=== PATIENT | female | born 1960 | race Caucasian/White ===

== ENCOUNTER → 2017-06-07 14:48 | Outpatient (CLI) | payer OTHER, SELFPAY ==
[2017-06-07 17:57] LABS: Absolute Lymphocyte Count 3.07 X10^3/ul (0.83-4.51); Absolute Neutrophil Count 4.7 X10^3/uL (2.0-7.7); Basophil# 0.02 X10^3/uL; Basophil% 0.2 % (0-1); Eosinophil# 0.16 X10^3/uL; Eosinophils% 1.8 % (0-5); Hematocrit 42.1 % (37-47); Hemoglobin 13.8 g/dl (12.0-15.0); Lymphocyte # 3.07 X10^3/ul (4.0); Lymphocyte % 35.2 % (19-41); Mean Corp Hgb Conc 32.8 g/gl (32-36); Mean Corpuscular Hgb 29.9 pg (27.0-32.0); Mean Corpuscular Volume 91.1 fL (81-99); Monocyte# 0.73 X10^3/uL; Monocyte% 8.4 % (0-10); Neutrophil # 4.74 X10^3/uL (2.7-7.7); Neutrophil % 54.3 % (47-70); Platelet Count 344 K/mm3 (150-450); RBC Distribution Width SD 42.8 fl (35.1-43.9); Red Blood Count 4.62 M/mm3 (4.2-5.4); White Blood Count 8.7 K/mm3 (4.4-11.0)
[2017-06-07 18:17] LABS: POSITIVE COUNT NO; POSITIVE DIFFERENTIAL NO; POSITIVE MORPHOLOGY NO
[2017-06-07 18:53] LABS: ALB/GLOB Ratio 0.8 RATIO (0.9-2.4); AST(SGOT) 19 U/L (15-37); Alanine Aminotransfer ALT/SGPT 25 U/L (13-56); Albumin, Serum 3.7 g/dL (3.2-5.0); Alkaline Phosphatase 89 U/L (45-117); Anion Gap 10 (5-15); BUN 14 mg/dL (7-18); BUN/Creat Ratio 15.5 RATIO (10-20); Calcium,Total 8.8 mg/dL (8.5-10.1); Chloride 103 mmol/L (98-107); EST Glomerular Filtration Rate 68 mL/min (>60); Est Glom Filt Rate - Afr Amer 83 mL/min (>60); Globulin 4.7 g/dL (2.2-4.2); Glucose 96 mg/dL (74-106); Potassium 3.8 mmol/L (3.5-5.1); Protein, Total 8.4 g/dL (6.4-8.2); Sodium Level 140 mmol/L (136-145)
== END ==
PROVIDERS: Family Provider Family Medicine; PCP Family Medicine; Visit Provider Internal Medicine Rheumatology
DX: L40.59 Other psoriatic arthropathy (principal); Z79.899 Other long term (current) drug therapy; L40.9 Psoriasis, unspecified
CPT/HCPCS: 36415; 80053; 85025

== ENCOUNTER → 2018-03-05 10:50 | Outpatient (CLI) | payer OTHER, SELFPAY ==
--- OUTSIDE RECORDS SUMMARY | 2018-04-29 19:50 | XMS RPT_ITS ---
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 Cult, Anaerobic No anaerobic bacteria isolated. Performed By: #### M100.1200 #### [facility] [place], [address] CBC W/DIFF, AUTOMATED Collected: 06/07/2017 Status: F Source: [facility] 2:54 PM [facility] TYPE CODE TESTS RESULT OUT OF RANGE REFERENCE UNITS LAB L100.1000 4.4-11.0 K/mm3 Normal WBC 8.7 LAB L100.1200 4.2-5.4 M/mm3 Normal RBC 4.62 LAB L100.1300 12.0-15.0 g/dl Normal HGB 13.8 LAB L100.1400 37-47 % Normal HCT 42.1 LAB L100.1500 81-99 fL Normal MCV 91.1 LAB L100.1600 27.0-32.0 pg Normal MCH 29.9 LAB L100.1700 32-36 g/gl Normal MCHC 32.8 LAB L100.1810 11.6-14.6 % Normal RDW CV 13.0 LAB L100.1820 35.1-43.9 fl Normal RDW SD 42.8 LAB L100.1900 150-450 K/mm3 Normal PLT 344 LAB L100.2000 6.2-12.0 fl Normal MPV 10.0 LAB L100.2100 47-70 % Normal NEUT% 54.3 LAB L100.2200 19-41 % Normal LY% 35.2 LAB L100.2300 0-10 % Normal MONO% 8.4 LAB L100.2400 0-5 % Normal EO% 1.8 LAB L100.2500 0-1 % Normal BASO% 0.2 LAB L100.2550 0.0-0.9 % Normal IM GRAN % 0.100 Result Comment: IG% - Immature Granulocytes (promyelocytes, myelocytes and metamyelocytes) > 1% indicates that a LEFT SHIFT is Present. LAB L100.2620 2.0-7.7 X10 3/uL Normal Absolute Neut 4.7 LAB L100.2720 0.83-4.51 X10 3/ul Normal Absolute Lymph 3.07 Performed By: #### L100.0100 #### [facility] [address] [place], [address] COMPREHENSIVE METABOLIC Collected: 06/07/2017 Status: F Source: [facility] 2:54 PM [facility] TYPE CODE TESTS RESULT OUT OF RANGE REFERENCE UNITS LAB L501.0100 74-106 mg/dL Normal GLU 96 Result Comment: Please note revised GLUCOSE reference range effective 2017. LAB L501.1000 7-18 mg/dL Normal BUN 14 LAB L501.1100 0.55-1.02 mg/dL Normal CREAT,SERUM 0.90 Result Comment: The validity of the calculated GFR AND GFRAA in patients over 70 years has not been determined. Clinical correlation is essential. LAB L501.1110 >60 mL/min Normal EST GFR 68 Result Comment: Non- GFR Calc LAB L501.1115 >60 mL/min Normal EST GFR - AA 83 Result Comment: GFR Calc LAB L501.1300 10-20 RATIO Normal BUN/CRE 15.5 LAB L501.1500 6.4-8.2 g/dL High T PROT 8.4 LAB L501.1800 3.2-5.0 g/dL Normal ALB 3.7 LAB L501.1950 2.2-4.2 g/dL High GLOB 4.7 LAB L501.2000 0.9-2.4 RATIO Low A/G 0.8 LAB L501.2200 8.5-10.1 mg/dL CA Normal 8.8 LAB L501.4100 15-37 U/L Normal AST 19 LAB L501.4305 45-117 U/L Normal ALK P 89 LAB L501.4405 13-56 U/L Normal ALT 25 Result Comment: Please note revised ALT reference range effective 2017. LAB L501.4600 0.20-1.00 mg/dL Normal T BILI 0.50 LAB L501.5300 136-145 mmol/L Normal NA 140 LAB L501.5600 3.5-5.1 mmol/L Normal K 3.8 LAB L501.5900 98-107 mmol/L Normal CL 103 LAB L501.6100 21.0-32.0 mmol/L Normal CO2 27.0 LAB L501.6200 5-15 Normal GAP 10 Performed By: #### L500.4050 #### [facility] [address] [place], [address] ALLERGIES ALLERGIES No Allergies Records FoundENCOUNTERS ENCOUNTERS ADMIT/DISCHARGE ACCOUNT ADMITTING ENCOUNTER LOCATION SOURCE NUMBER CLASS 03/05/2018 [id number] [facility] 9 [facility] ing:LABSPEC Repository 06/07/2017 [id number] [facility] 0 [facility] ing:MTLAB Repository PAYERS PAYERS ENCOUNTER GUARANTOR PAYER SUBSCRIBER SOURCE 03/05/2018 LEONEL [id number] Insurance:MEDICAL WAGNERDOB: [facility] [id number] Number: Repository [id number]: [phone] [id number] [phone] () Date:[id number] [address]LB: 03/05/2018 Secondary NOT GIVENUNK Dashawn Insurance:SELF PAY [facility] Number: Effective Repository Date:2018-03-05 06/07/2017 LEONEL Garza Primary [place]ONEL [place] [id number] Insurance:MEDICAL OSKALOOSADOB: [facility] [id number] Number: Repository [id number]: [phone] [id number] [phone] () Date:[id number] [address] [place] [phone]: 06/07/2017 Secondary NOT GIVENUNK Dashawn Insurance:SELF PAY [facility] Number: Effective Repository Date:2017-06-07
== END ==
PROVIDERS: Family Provider Family Medicine; PCP Family Medicine; Referring Provider Otolaryngology Otolaryngology/Facial Plastic Surgery; Visit Provider Otolaryngology Otolaryngology/Facial Plastic Surgery
DX: H01.009 Unspecified blepharitis unspecified eye, unspecified eyelid (principal)
CPT/HCPCS: 87070; 87075; 87205

== ENCOUNTER → 2018-04-15 15:29 | Outpatient (CLI) | payer OTHER, SELFPAY ==
[2018-04-15 17:58] LABS: Absolute Lymphocyte Count 1.93 X10^3/ul (0.83-4.51); Absolute Neutrophil Count 3.7 X10^3/uL (2.0-7.7); Basophil# 0.03 X10^3/uL; Basophil% 0.5 % (0-1); Eosinophil# 0.16 X10^3/uL; Eosinophils% 2.5 % (0-5); Hematocrit 43.9 % (37-47); Hemoglobin 14.3 g/dl (12.0-15.0); Lymphocyte # 1.93 X10^3/ul (4.0); Lymphocyte % 29.8 % (19-41); Mean Corp Hgb Conc 32.6 g/gl (32-36); Mean Corpuscular Hgb 29.8 pg (27.0-32.0); Mean Corpuscular Volume 91.5 fL (81-99); Mean Platelet Vol. 10.6 fl (6.2-12.0); Monocyte% 9.3 % (0-10); Neutrophil # 3.73 X10^3/uL (2.7-7.7); Neutrophil % 57.6 % (47-70); Platelet Count 389 K/mm3 (150-450); RBC Distribution Width CV 13.9 % (11.6-14.6); RBC Distribution Width SD 46.1 fl (35.1-43.9); White Blood Count 6.5 K/mm3 (4.4-11.0)
[2018-04-15 18:03] LABS: ALB/GLOB Ratio 0.8 RATIO (0.9-2.4); AST(SGOT) 21 U/L (15-37); Alanine Aminotransfer ALT/SGPT 27 U/L (13-56); Albumin, Serum 3.7 g/dL (3.2-5.0); Alkaline Phosphatase 84 U/L (45-117); Anion Gap 10 (5-15); BUN 12 mg/dL (7-18); BUN/Creat Ratio 11.5 RATIO (10-20); Calcium,Total 8.8 mg/dL (8.5-10.1); Chloride 104 mmol/L (98-107); Creatinine, Serum 1.04 mg/dL (0.55-1.02); EST Glomerular Filtration Rate 58 mL/min (>60); Est Glom Filt Rate - Afr Amer 70 mL/min (>60); Globulin 4.5 g/dL (2.2-4.2); Glucose 149 mg/dL (74-106); Potassium 3.6 mmol/L (3.5-5.1); Protein, Total 8.2 g/dL (6.4-8.2); Sodium Level 140 mmol/L (136-145)
[2018-04-15 18:22] LABS: POSITIVE COUNT NO; POSITIVE DIFFERENTIAL NO; POSITIVE MORPHOLOGY NO
[2018-04-15 19:35] LABS: Erythrocyte Sedimentation Rate 68 mm/hr (0-30)
== END ==
PROVIDERS: Family Provider Family Medicine; PCP Family Medicine; Referring Provider Internal Medicine Rheumatology; Visit Provider Internal Medicine Rheumatology
DX: L40.59 Other psoriatic arthropathy (principal); Z79.899 Other long term (current) drug therapy; L40.9 Psoriasis, unspecified; M17.0 Bilateral primary osteoarthritis of knee; M25.562 Pain in left knee
CPT/HCPCS: 36415; 80053; 85025; 85652; 86140

== ENCOUNTER → 2018-11-22 | Outpatient (CLI) | payer OTHER, SELFPAY ==
[2018-11-22 15:22] LABS: Absolute Lymphocyte Count 1.75 X10^3/uL (0.83-4.51); Absolute Neutrophil Count 4.9 X10^3/uL (2.0-7.7); Basophil# 0.05 X10^3/uL; Basophil% 0.7 % (0-1); Eosinophils% 2.6 % (0-5); Hemoglobin 13.1 g/dL (12.0-15.0); Lymphocyte # 1.75 X10^3/ul (4.0); Mean Corpuscular Hgb 29.8 pg (27.0-32.0); Mean Corpuscular Volume 93.2 fL (81-99); Mean Platelet Vol. 10.8 fl (6.2-12.0); Monocyte# 0.73 X10^3/uL; Monocyte% 9.6 % (0-10); NRBC Flagged by Analyzer 0 % (0-5); Neutrophil # 4.86 X10^3/uL (2.7-7.7); Neutrophil % 63.8 % (47-70); Platelet Count 397 K/mm3 (150-450); RBC Distribution Width CV 12.8 % (11.6-14.6); RBC Distribution Width SD 43.8 fl (35.1-43.9); White Blood Count 7.6 K/mm3 (4.4-11.0)
[2018-11-22 15:32] LABS: Anion Gap 3 (5-15); BUN 15 mg/dL (7-18); BUN/Creat Ratio 10.3 RATIO (10-20); Calcium,Total 8.5 mg/dL (8.5-10.1); Chloride 109 mmol/L (98-107); Creatinine, Serum 1.46 mg/dL (0.55-1.02); EST Glomerular Filtration Rate 39 mL/min (>60); Est Glom Filt Rate - Afr Amer 47 mL/min (>60); Glucose 105 mg/dL (74-106); Potassium 4.3 mmol/L (3.5-5.1); Sodium Level 141 mmol/L (136-145)
[2018-11-22 16:04] LABS: Vitamin D,25 Hydroxy 10.6 ng/mL (29.95-100.01)
[2018-11-25 03:06] LABS: QNTFERON TB Mitogen Value > 10.00 IU/mL (.); QNTFERON TB Nil Value 0.04 IU/mL (.); QNTFERON TB1+ Ag Value 0.04 IU/mL (.); QNTFERON TB2+ Ag Value 0.04 IU/mL (.)
[2018-11-25 13:38] LABS: QNTIFERON TB Positive Criteria Negative (Negative)
== END | disposition home or self-care (01) ==
LOC: MTLAB 14:02
PROVIDERS: Family Provider Family Medicine; PCP Family Medicine; Referring Provider Dermatology; Visit Provider Dermatology
DX: L40.0 Psoriasis vulgaris (principal); Z79.899 Other long term (current) drug therapy; L40.59 Other psoriatic arthropathy
CPT/HCPCS: 36415; 80048; 82306; 85025; 86480

== ENCOUNTER → 2020-07-08 12:38 | Outpatient (CLI) | payer OTHER, SELFPAY ==
[2020-07-10 20:07] LABS: HCV Quant. RNA PCR HCV Not Detected IU/mL (.)
== END ==
PROVIDERS: PCP Family Medicine; Referring Provider Dermatology; Visit Provider Dermatology
DX: L40.0 Psoriasis vulgaris (principal); L40.50 Arthropathic psoriasis, unspecified; Z79.899 Other long term (current) drug therapy
CPT/HCPCS: 36415; 87522

== ENCOUNTER → 2020-08-20 11:50 | Outpatient (CLI) | payer OTHER, SELFPAY ==
[2020-08-23 06:08] LABS: QNTFERON TB Mitogen Value > 10.00 IU/mL (.); QNTFERON TB Nil Value 0 IU/mL (.); QNTFERON TB1+ Ag Value 0 IU/mL (.); QNTFERON TB2+ Ag Value 0 IU/mL (.)
[2020-08-23 08:30] LABS: QNTIFERON TB Positive Criteria Negative (Negative)
== END ==
PROVIDERS: PCP Family Medicine; Referring Provider Dermatology; Visit Provider Dermatology
DX: L40.0 Psoriasis vulgaris (principal); L40.50 Arthropathic psoriasis, unspecified; Z79.899 Other long term (current) drug therapy
CPT/HCPCS: 86480

== ENCOUNTER → 2021-08-07 | Outpatient (CLI) | payer OTHER, SELFPAY | END | disposition home or self-care (01) | LOC: LABSPEC 15:15 | PROVIDERS: PCP Family Medicine; Referring Provider Otolaryngology Otolaryngology/Facial Plastic Surgery; Visit Provider Otolaryngology Otolaryngology/Facial Plastic Surgery | DX: J32.9 Chronic sinusitis, unspecified (principal) | CPT/HCPCS: 87070; 87077; 87186; 87205 ==

== ENCOUNTER → 2022-08-06 | Outpatient (CLI) | payer OTHER, SELFPAY ==
[2022-08-06 17:43] LABS: Absolute Lymphocyte Count 1.22 X10^3/uL (0.83-4.51); Absolute Neutrophil Count 5.6 X10^3/uL (2.0-7.7); Basophil# 0.07 X10^3/uL; Basophil% 0.9 % (0-1); Eosinophil# 0.03 X10^3/uL; Eosinophils% 0.4 % (0-5); Hematocrit 44.2 % (37-47); Hemoglobin 14.2 g/dL (12.0-15.0); Lymphocyte # 1.22 X10^3/ul (0.83-4.51); Lymphocyte % 16.4 % (19-41); Mean Corp Hgb Conc 32.1 g/dL (32-36); Mean Corpuscular Hgb 29.3 pg (27.0-32.0); Mean Corpuscular Volume 91.3 fL (81-99); Mean Platelet Vol. 10.4 fl (6.2-12.0); Monocyte# 0.58 X10^3/uL; Monocyte% 7.8 % (0-10); NRBC Flagged by Analyzer 0 % (0-5); Neutrophil # 5.55 X10^3/uL (2.7-7.7); Neutrophil % 74.4 % (47-70); Platelet Count 389 K/mm3 (150-450); RBC Distribution Width CV 13.1 % (11.6-14.6); RBC Distribution Width SD 43.5 fl (35.1-43.9); Red Blood Count 4.84 M/mm3 (4.2-5.4); White Blood Count 7.5 K/mm3 (4.4-11.0)
[2022-08-06 18:27] LABS: Hemoglobin A1c 5.2 % (3.8-5.6)
[2022-08-06 18:50] LABS: ALB/GLOB Ratio 0.8 RATIO (0.9-2.4); AST(SGOT) 26 U/L (15-37); Alanine Aminotransfer ALT/SGPT 25 U/L (13-56); Albumin, Serum 3.7 g/dL (3.2-5.0); Alkaline Phosphatase 90 U/L (45-117); Anion Gap 10 (5-15); BUN 15 mg/dL (7-18); BUN/Creat Ratio 15.6 RATIO (10-20); Calcium,Total 9.5 mg/dL (8.5-10.1); Chloride 105 mmol/L (98-107); Cholesterol 215 mg/dL (200); Creatinine, Serum 0.96 mg/dL (0.55-1.02); EST Glomerular Filtration Rate 63 mL/min (>60); Est Glom Filt Rate - Afr Amer 76 mL/min (>60); Globulin 4.8 g/dL (2.2-4.2); Glucose 112 mg/dL (74-106); High Density Lipoprotein 44 mg/dL; Potassium 4.1 mmol/L (3.5-5.1); Protein, Total 8.5 g/dL (6.4-8.2); Sodium Level 139 mmol/L (136-145); Thyroid Stim Hormone (TSH) 3.29 uIU/mL (0.358-3.74); Triglycerides 115 mg/dL; Very Low Density Lipoprotein 23 mg/dL (5-40)
== END | disposition home or self-care (01) ==
LOC: MFPLAB 14:54
PROVIDERS: PCP Family Medicine; Visit Provider Family Medicine
DX: Z13.0 Encounter for screening for diseases of the blood and blood-forming organs and certain disorders involving the immune mechanism (principal); Z13.228 Encounter for screening for other metabolic disorders; Z13.1 Encounter for screening for diabetes mellitus; Z13.220 Encounter for screening for lipoid disorders
CPT/HCPCS: 36415; 80053; 80061; 83036; 84443; 85025

== ENCOUNTER → 2022-10-22 | Outpatient (CLI) | payer OTHER, SELFPAY ==
[2022-10-28 16:45] LABS: HPV HC, High Risk Negative; HPV Reflexed? YES, CHARGE PATIENT
== END | disposition home or self-care (01) ==
PROVIDERS: PCP Family Medicine; Visit Provider Family Medicine
DX: Z12.4 Encounter for screening for malignant neoplasm of cervix (principal)
CPT/HCPCS: 87624; 88175; G0145

== ENCOUNTER → 2023-01-06 | Outpatient (CLI) | payer OTHER, SELFPAY ==
[2023-01-06 15:12] LABS: Absolute Lymphocyte Count 2.19 X10^3/uL (0.83-4.51); Absolute Neutrophil Count 4.8 X10^3/uL (2.0-7.7); Basophil% 1.2 % (0-1); Eosinophil# 0.21 X10^3/uL; Eosinophils% 2.5 % (0-5); Hematocrit 41.5 % (37-47); Hemoglobin 13.2 g/dL (12.0-15.0); Lymphocyte # 2.19 X10^3/ul (0.83-4.51); Lymphocyte % 26.5 % (19-41); Mean Corp Hgb Conc 31.8 g/dL (32-36); Mean Corpuscular Hgb 28.4 pg (27.0-32.0); Mean Corpuscular Volume 89.4 fL (81-99); Mean Platelet Vol. 10.5 fl (6.2-12.0); Monocyte# 0.96 X10^3/uL; Monocyte% 11.6 % (0-10); NRBC Flagged by Analyzer 0 % (0-5); Neutrophil # 4.76 X10^3/uL (2.7-7.7); Neutrophil % 57.7 % (47-70); POSITIVE COUNT YES; Platelet Count 506 K/mm3 (150-450); RBC Distribution Width CV 12.7 % (11.6-14.6); RBC Distribution Width SD 41.3 fl (35.1-43.9); Red Blood Count 4.64 M/mm3 (4.2-5.4); White Blood Count 8.3 K/mm3 (4.4-11.0)
[2023-01-06 15:36] LABS: AST(SGOT) 26 U/L (15-37); Alanine Aminotransfer ALT/SGPT 23 U/L (13-56); Albumin, Serum 3.1 g/dL (3.2-5.0); Alkaline Phosphatase 81 U/L (45-117); Bilirubin, Direct 0.12 mg/dL (0.00-0.30); Creatinine, Serum 1.06 mg/dL (0.55-1.02); EST Glomerular Filtration Rate 56 mL/min (>60); Est Glom Filt Rate - Afr Amer 68 mL/min (>60); Globulin 5.6 g/dL (2.2-4.2); Protein, Total 8.7 g/dL (6.4-8.2)
[2023-01-06 15:56] LABS: Differential Indicated SCAN CRITERIA MET
[2023-01-06 16:23] LABS: Differential Comment SCANNED
== END | disposition home or self-care (01) ==
PROVIDERS: PCP Family Medicine; Referring Provider Internal Medicine Rheumatology; Visit Provider Internal Medicine Rheumatology
DX: L40.50 Arthropathic psoriasis, unspecified (principal)
CPT/HCPCS: 36415; 80076; 82565; 85025

== ENCOUNTER → 2023-01-29 | Outpatient (CLI) | payer OTHER, SELFPAY ==
[2023-01-29 16:32] LABS: ALB/GLOB Ratio 0.6 RATIO (0.9-2.4); AST(SGOT) 42 U/L (15-37); Alanine Aminotransfer ALT/SGPT 37 U/L (13-56); Alkaline Phosphatase 86 U/L (45-117); Anion Gap 9 (5-15); BUN 11 mg/dL (7-18); BUN/Creat Ratio 9.6 RATIO (10-20); Calcium,Total 8.9 mg/dL (8.5-10.1); Chloride 103 mmol/L (98-107); Creatinine, Serum 1.14 mg/dL (0.55-1.02); EST Glomerular Filtration Rate 51 mL/min (>60); Est Glom Filt Rate - Afr Amer 62 mL/min (>60); Globulin 5.2 g/dL (2.2-4.2); Glucose 210 mg/dL (74-106); Potassium 3.9 mmol/L (3.5-5.1); Protein, Total 8.2 g/dL (6.4-8.2); Sodium Level 136 mmol/L (136-145); Thyroid Stim Hormone (TSH) 2.78 uIU/mL (0.358-3.74)
== END | disposition home or self-care (01) ==
LOC: MTLAB 13:52
PROVIDERS: PCP Family Medicine; Referring Provider Internal Medicine Cardiovascular Disease; Visit Provider Internal Medicine Cardiovascular Disease
DX: R00.2 Palpitations (principal); R00.0 Tachycardia, unspecified; I10 Essential (primary) hypertension
CPT/HCPCS: 36415; 80053; 84443

== ENCOUNTER → 2023-02-16 | Outpatient (CLI) | payer OTHER, SELFPAY ==
--- NOTE | 2023-02-16 09:44 | ECHOCS_ITS ---
Reason For Study: TACHYCARDIA Procedure This was a 2D Doppler, Color Flow transthoracic echocardiogram. The study was technically difficult. Contrast injection was performed. Exam performed in department. Left Ventricle Normal LV size. Mild concentric left ventricular hypertrophy. The left ventricular ejection fraction is 70 %. Stage 1 diastolic dysfunction. Right Ventricle Normal right ventricle. Atria The left and right atria are normal. Mitral Valve The mitral valve is structurally normal. No prolapse or stenosis seen. Tricuspid Valve Normal tricuspid valve. Aortic Valve Trisinus/trileaflet aortic valve. Pulmonic Valve The pulmonic valve is not well visualized. Great Vessels Normal sized aortic root. Pericardium/Pleural Trivial pericardial effusion. Medication 22 gauge I.V. with prn adaptor inserted into left arm. Diluted definity 2ml given slow IV push to enhance endocardial definition. MMode/2D Measurements & Calculations LVIDd: 3.5 cm IVSd: 1.2 cm Ao root diam: 2.8 cm LVIDs: 2.3 cm LVPWd: 0.97 cm FS: 35.2 % LAV(MOD-bp): 22.9 ml LVAd ap4: 27.6 cm2 SV(MOD-sp4): 56.7 ml LAV(MOD-bp) Indexed: 11.3 ml/m2 LVLd ap4: 7.6 cm LAV(MOD-sp2): 28.5 ml EDV(MOD-sp4): 84.1 ml LAV(MOD-sp4): 18.8 ml EDV(sp4-el): 84.9 ml LVAs ap4: 14.6 cm2 LVLs ap4: 6.5 cm ESV(MOD-sp4): 27.4 ml ESV(sp4-el): 27.7 ml EF(MOD-sp4): 67.4 % EF(sp4-el): 67.3 % SV(sp4-el): 57.1 ml LA A4 area: 10.0 cm2 LA dimension(2D): 3.2 cm RA A4 area: 12.7 cm2 TAPSE: 2.0 cm Time Measurements MV dec time: 0.09 sec Doppler Measurements & Calculations MV E max temo: 71.4 cm/sec Lat Peak E' Temo: 6.0 cm/sec Med Peak E' Temo: 5.5 cm/sec MV A max temo: 94.5 cm/sec E/E' lat: 12.0 E/E' med: 13.0 MV E/A: 0.76 MV V2 max: 93.3 cm/sec MV dec slope: 878.4 cm/sec2 Ao V2 max: 94.8 cm/sec MV max P.5 mmHg Ao max P.6 mmHg MV V2 mean: 59.7 cm/sec Ao V2 mean: 68.3 cm/sec MV mean P.6 mmHg Ao mean P.1 mmHg MV V2 VTI: 18.2 cm Ao V2 VTI: 17.5 cm AV (velocity ratio): 1.1 LV V1 max: 89.1 cm/sec PA V2 max: 110.1 cm/sec LV V1 max P.2 mmHg PA V2 mean: 73.2 cm/sec LV V1 mean P.7 mmHg LV V1 mean: 60.9 cm/sec LV V1 VTI: 19.1 cm ECHO/Echo Complete W/ Contrast Interpretation Summary Mild concentric left ventricular hypertrophy. The left ventricular ejection fraction is 70 %. Stage 1 diastolic dysfunction. Trivial pericardial effusion. Ordering Physician: Nuzhat Jade Referring Physician: Nuzhat Jade Performed By: Nenita Wynn RCS
== END | disposition home or self-care (01) ==
PROVIDERS: PCP Family Medicine; Referring Provider Internal Medicine Cardiovascular Disease; Visit Provider Internal Medicine Cardiovascular Disease
DX: R00.2 Palpitations (principal); R00.0 Tachycardia, unspecified; I10 Essential (primary) hypertension
CPT/HCPCS: 93225; 93226; 93306; Q9957; A4216; C8929

== ENCOUNTER → 2023-03-10 | Outpatient (CLI) | payer OTHER, SELFPAY ==
[2023-03-10 17:46] LABS: Absolute Lymphocyte Count 1.41 X10^3/uL (0.83-4.51); Absolute Neutrophil Count 7.5 X10^3/uL (2.0-7.7); Eosinophil# 0.03 X10^3/uL; Eosinophils% 0.3 % (0-5); Hematocrit 43.9 % (37-47); Hemoglobin 13.7 g/dL (12.0-15.0); Lymphocyte # 1.41 X10^3/ul (0.83-4.51); Lymphocyte % 13.9 % (19-41); Mean Corp Hgb Conc 31.2 g/dL (32-36); Mean Corpuscular Hgb 27.3 pg (27.0-32.0); Mean Corpuscular Volume 87.5 fL (81-99); Mean Platelet Vol. 9.9 fl (6.2-12.0); Monocyte# 1.11 X10^3/uL; Monocyte% 10.9 % (0-10); NRBC Flagged by Analyzer 0 % (0-5); Neutrophil # 7.49 X10^3/uL (2.7-7.7); Neutrophil % 73.6 % (47-70); Platelet Count 502 K/mm3 (150-450); RBC Distribution Width CV 14.7 % (11.6-14.6); RBC Distribution Width SD 46.7 fl (35.1-43.9); Red Blood Count 5.02 M/mm3 (4.2-5.4); White Blood Count 10.2 K/mm3 (4.4-11.0)
[2023-03-10 18:14] LABS: AST(SGOT) 39 U/L (15-37); Alanine Aminotransfer ALT/SGPT 30 U/L (13-56); Albumin, Serum 3.5 g/dL (3.2-5.0); Alkaline Phosphatase 86 U/L (45-117); Bilirubin, Direct 0.11 mg/dL (0.00-0.30); Creatinine, Serum 1.01 mg/dL (0.55-1.02); EST Glomerular Filtration Rate 59 mL/min (>60); Est Glom Filt Rate - Afr Amer 71 mL/min (>60); Protein, Total 8.5 g/dL (6.4-8.2)
[2023-03-10 18:16] LABS: Erythrocyte Sedimentation Rate 92 mm/hr (0-30)
== END | disposition home or self-care (01) ==
LOC: MTLAB 15:13
PROVIDERS: PCP Family Medicine; Referring Provider Internal Medicine Rheumatology; Visit Provider Internal Medicine Rheumatology
DX: L40.50 Arthropathic psoriasis, unspecified (principal)
CPT/HCPCS: 36415; 80076; 82565; 85025; 85652; 86140

== ENCOUNTER → 2023-05-03 | Outpatient (CLI) | payer OTHER, SELFPAY ==
--- OUTSIDE RECORDS SUMMARY | 2023-05-03 14:52 | XMS RPT_ITS | CCD ---
Author Name Unknown Address [address] [place] [address] Organization [facility] Care Team Providers Care Solar Energy Technician Name Role Phone NOLBERTO LEAL Attending Unavailable LOLIS LEWIS Referring Unavailable Encounters Encounter Date Encounter Type Care Provider Facility Start: 06-27-2021 [facility] Facility :[facility] Start: 06-23-2021 [facility] Facility :[facility] Start: 04-24-2021 [facility] Facility :[facility] Payers Date Payer Category Payer Unknown [id number] 1960 Unknown [id number] 1960 Unknown [id number] [id number]. [id number] Summary Purpose Family History No Family History Records Found Advance Directives No Advanced Directives Records Found Additional Source Comments INFORMATION SOURCE (unrecogn ized section and content) FOR RECORDS PERTAINING TO PATIENTS WHO ARE OR HAVE BEEN ENROLLED IN A CHEMICAL DEPENDENCY/SUBSTANCEABUSE PROGRAM, SOME INFORMATION MAY BE OMITTED. This clinical summary was aggregated from multiple sources. Caution should be exercised in using it in the provision of clinical care. This summary normalizes information from multiple sources, and as a consequence, information in this document may materially change the coding, format and clinical context of patient data. In addition, data may be omitted in some cases. CLINICAL DECISIONS SHOULD BE BASED ON THE PRIMARY CLINICAL RECORDS. [facility] [employer] provides no warranty or guarantee of the accuracy or completeness of information in this document.
[2023-05-03 17:56] LABS: Erythrocyte Sedimentation Rate 116 mm/hr (0-30)
[2023-05-03 18:06] LABS: AST(SGOT) 37 U/L (15-37); Alanine Aminotransfer ALT/SGPT 28 U/L (13-56); Alkaline Phosphatase 79 U/L (45-117); Bilirubin, Direct 0.14 mg/dL (0.00-0.30); Creatinine, Serum 0.94 mg/dL (0.55-1.02); EST Glomerular Filtration Rate 64 mL/min (>60); Est Glom Filt Rate - Afr Amer 78 mL/min (>60)
[2023-05-05 09:38] LABS: Absolute Lymphocyte Count 2.06 X10^3/uL (0.83-4.51); Absolute Neutrophil Count 4.9 X10^3/uL (2.0-7.7); Basophil# 0.14 X10^3/uL; Basophil% 1.5 % (0-1); Eosinophil# 0.13 X10^3/uL; Eosinophils% 1.4 % (0-5); Hematocrit 41.2 % (37-47); Hemoglobin 12.7 g/dL (12.0-15.0); Lymphocyte # 2.06 X10^3/ul (0.83-4.51); Lymphocyte % 22.6 % (19-41); Mean Corp Hgb Conc 30.8 g/dL (32-36); Mean Corpuscular Hgb 26.8 pg (27.0-32.0); Mean Corpuscular Volume 86.9 fL (81-99); Mean Platelet Vol. 10.1 fl (6.2-12.0); Monocyte# 1.64 X10^3/uL; NRBC Flagged by Analyzer 0 % (0-5); Neutrophil # 4.89 X10^3/uL (2.7-7.7); Neutrophil % 53.8 % (47-70); POSITIVE DIFFERENTIAL YES; POSITIVE MORPHOLOGY YES; Platelet Count 594 K/mm3 (150-450); RBC Distribution Width CV 13.5 % (11.6-14.6); Red Blood Count 4.74 M/mm3 (4.2-5.4); White Blood Count 9.1 K/mm3 (4.4-11.0)
[2023-05-05 10:03] LABS: Differential Indicated SCAN CRITERIA MET
[2023-05-05 10:05] LABS: Differential Comment SCANNED
== END | disposition home or self-care (01) ==
PROVIDERS: PCP Family Medicine; Referring Provider Internal Medicine Rheumatology; Visit Provider Internal Medicine Rheumatology
DX: L40.50 Arthropathic psoriasis, unspecified (principal)
CPT/HCPCS: 36415; 80076; 82565; 85025; 85652; 86140

== ENCOUNTER → 2025-01-24 | Outpatient (CLI) | payer OTHER, SELFPAY ==
--- OUTSIDE RECORDS SUMMARY | 2025-01-24 06:28 | XMS RPT_ITS | CCD ---
Author Organization [facility] Care Team Providers Care Commercial Credit Analyst Name Role Phone NOLBERTO LEAL Attending LOLIS Hagen Referring Unavailable DO Adina Guzmán Primary Care Provider [phone] DO Adina Guzmán Referring Provider [phone] Nuzhat Jade Attending Provider DO Adina Guzmán Primary Care Provider [phone] DO Adina Guzmán Referring Provider [phone] Nuzhat Jade Attending Provider Dr. Kyle Cordova Attending Provider [phone] Adina Guzmán DO Primary Care Provider [phone] Care Physician, No Primary Primary Care Provider Unavailable Care Physician, No Primary Referring Provider Un available Roof FERN-Osito Caal Attending Provider Care Physician, No Primary Primary Care Unava ilable Roof TOOL ROOM ATTENDANT, Osito De La Torre Referring Unavailable Roof TOOL ROOM ATTENDANT, Osito De La Torre Attending Unavailable Care Physician, No Primary Primary Care Unava ilable Roof TOOL ROOM ATTENDANT, Osito De La Torre Referring Unavailable Roof TOOL ROOM ATTENDANT, Osito De La Torre Attending Unavailable Care Physician, No Primary Referring Unava ilable Care Physician, No Primary Primary Care Unava ilable Roof TOOL ROOM ATTENDANT, Osito De La Torre Attending Unavailable Roof TOOL ROOM ATTENDANT, Osito De La Torre Attending Unavailable Care Physician, No Primary Referring Unava ilable Care Physician, No Primary Primary Care Unava ilable Allergies Allergy Classification Reported Allergen(s) Allergy Type Date of Onset Reaction(s) Facility (5 sources) Azithromycin Drug Allergy 10-10-19 09 unknown [facility] (5 sources) cefprozil Drug Allergy 10-10-19 09 Rash [facility] (4 sources) Hydroxychloroquine Drug Allergy 01-21-20 23 unknown [facility] (2 sources) amLODIPine Drug Allergy 05-03-19 24 Marked swelling in hands [facility] (1 source) certolizumab pegol Drug Allergy 01-14-20 19 Rash [facility] (1 source) Dust Propensity to adverse reactions 10-10-19 09 [facility] (1 source) guselkumab Drug Allergy 01-14-20 Rash [facility] (1 source) Hydroxychloroquine Drug Allergy 10-10-19 09 [facility] (1 source) secukinumab Drug Allergy 01-14-20 19 Rash [facility] (1 source) Homeopathic Products Propensity to adverse reactions 10-10-19 09 [facility] (1 source) Ragweed Propensity to adverse reactions 10-10-19 09 [facility] (1 source) Atenolol Drug Allergy 11-09-19 25 Severe diarrhea [facility] (1 source) carvedilol Drug Allergy 11-09-19 25 Nausea [facility] (1 source) dilTIAZem Drug Allergy 11-09-19 25 Hair Loss, knuckles swelling [facility] (1 source) Metoprolol Drug Allergy 11-09-19 25 Joint swelling [facility] (1 source) amLODIPine Drug Allergy 11-09-19 25 [facility] (1 source) Atenolol Drug Allergy 11-09-19 25 [facility] (1 source) Azithromycin Drug Allergy 11-09-19 25 [facility] (1 source) carvedilol Drug Allergy 11-09-19 25 [facility] (1 source) cefprozil Drug Allergy 11-09-19 25 [facility] (1 source) dilTIAZem Drug Allergy 11-09-19 25 [facility] (1 source) Hydroxychloroquine Drug Allergy 11-09-19 25 [facility] (1 source) Metoprolol Drug Allergy 11-09-19 25 [facility] Medications Current Medications Medication Drug Class(es) Dates Sig (Normalized) Sig (Original) cholecalciferol 0.025 mg oral capsule (4 sources) Vitamin D Start: 01-18-2023 take 1 capsule by mouth once daily Cholecalciferol (Vitamin D3) 25 mcg (1,000 unit) capsule Active 25 ug PO DAILY January 18, 2023 12:00am nebivolol 10 mg oral tablet (4 sources) Start: 11-08-2024 take 5 mg by mouth three times daily Nebivolol 10 mg tablet Active 5 mg PO THREE TIMES A DAY November 08, 2024 12:00am Start: 08-23-2024 End: 11-08-2024 take 1 tablet by mouth twice daily Nebivolol 5 mg tablet Discontinued 5 mg PO TWICE A DAY 60 August 23, 2024 10:08am November 08, 2024 11:36am Start: 06-15-2024 End: 08-23-2024 take 2.5 mg by mouth twice daily Nebivolol 5 mg tablet Discontinued 2.5 mg PO TWICE A DAY 30 June 15, 2024 11:03am August 23, 2024 10:08am Start: 09-21-2023 End: 06-15-2024 take 1 tablet by mouth once daily Nebivolol 5 mg tablet Discontinued 5 mg PO DAILY 30 September 21, 2023 12:00am June 15, 2024 4:07pm Secukinumab (2 sources) Interleukin-17A Antagonist Start: 06-15-2024 Sec ukinumab (Cosentyx) 75 mg/0.5 mL syringe Active 300 mg SC every 4 weeks June 15, 2024 10:28am CLARIFY DOSE WITH PATIENT, Subscription Crew Leader ordered Start: 05-24-2023 End: 06-15-2024 Secukinumab (Cosentyx) 75 mg /0.5 mL syringe Discontinued 150 mg SC every 4 weeks May 24, 2023 1:00am June 15, 2024 10:29am CLARIFY DOSE WITH PATIENT, Subscription Crew Leader ordered Completed/Discontinued Medications Medication Drug Class(es) Dates Sig (Normalized) Sig (Original) amLODIPine 2.5 mg oral tablet (3 sources) Dihydropyridine Calcium Channel Alicia Start: 02-17-20 End: 03-17-20 take 1 tablet by mouth once daily Amlodipine (Norvasc) 2.5 mg tablet Discontinued 2.5 mg PO DAILY 30 February 16, 2023 1:00am March 17, 2023 3:23pm apremilast 30 mg oral tablet (4 sources) Start: 01-19-20 End: 05-24-19 take 1 tablet by mouth twice daily Apremilast (Otezla) 30 mg tablet Discontinued 30 mg PO TWICE A DAY January 18, 2023 12:00am May 24, 2023 4:56pm atenolol 50 mg oral tablet (3 sources) beta-Adrenergic Alicia Start: 05-12-19 End: 09-21-19 take 1 tablet by mouth once daily Atenolol 50 mg tablet Discontinued 50 mg PO DAILY 30 August 17, 2023 2:56pm September 21, 2023 11:57am Palpitations Hypertension Palpitations Essential (primary) hypertension carvedilol 6.25 mg oral tablet (3 sources) alpha-Adrenergic Alicia, beta-Adrenergic Alicia Start: 02-06-20 End: 03-04-20 take 1 tablet by mouth twice daily at mealtime Carvedilol 6.25 mg tablet Discontinued 6.25 mg PO TWICE A DAY 60 February 05, 2023 12:00am March 04, 2023 10:21am must administer with a meal/food certolizumab pegol 200 mg injection (1 source) Start: 12-05-19 CERTOLIZUMAB PEGOL 400 MG (200 MG X 2) SUB-Q KIT 1 SQ once a month x 90 days 0 12/04/2009 Active Comment on above: 1 SQ once a month x 90 days diclofenac sodium 0.01 mg/mg topical gel (1 source) Nonsteroidal Anti-inflammatory Drug Start: 10-20-19 diclofenac sodium(VOLTAREN 1 % TOPICAL GEL) Apply (2) two grams to affected area (3) times daily as needed for pain. 3 0 10/19/2008 Active Comment on above: Apply (2) two grams to affected area (3) times daily as needed for pain. 24 hr dilTIAZem hydrochloride 120 mg extended release oral capsule (1 source) Calcium Channel Alicia Start: 06-16-19 End: 08-22-19 take 1 capsule by mouth once daily Diltiazem Hcl 120 mg capsule,extended release 24 hr Discontinued 120 mg PO DAILY 30 June 15, 2024 12:00am August 21, 2024 10:40am hydroCHLOROthiazide 12.5 mg oral tablet (4 sources) Thiazide Diuretic Start: 03-17-20 End: 05-03-19 take 1 tablet by mouth once daily Hydrochlorothiazide 12.5 mg tablet Discontinued 12.5 mg PO DAILY 30 March 19, 2023 10:45am May 03, 2023 2:33pm ibuprofen 800 mg oral tablet (1 source) Nonsteroidal Anti-inflammatory Drug Start: 10-10-19 ibuprofen(MOTRIN 800 MG TAB) Take one(1) tablet three(3) times daily as needed for pain, with food. 0 10/09/2008 Active Comment on above: Take one(1) tablet t hree(3) times daily as needed for pain, with food. leflunomide 20 mg oral tablet (4 sources) Antirheumatic Agent Start: 01-19-20 End: 06-16-19 take 1 tablet by mouth once daily Leflunomide 20 mg tablet Discontinued 20 mg PO DAILY January 18, 2023 12:00am June 15, 2024 10:28am meloxicam 15 mg oral tablet (4 sources) Nonsteroidal Anti-inflammatory Drug Start: 01-19-20 End: 03-04-20 take 1 tablet by mouth once daily Meloxicam 15 mg tablet Discontinued 15 mg PO DAILY January 18, 2023 12:00am March 04, 2023 10:21am 24 hr metoprolol succinate 50 mg extended release oral tablet (2 sources) beta-Adrenergic Alicia Start: 05-03-19 End: 05-12-19 take 1 tablet by mouth once daily Metoprolol Succinate 50 mg tablet extended release 24 hr Discontinued 50 mg PO DAILY 04 03May 03, 2023 1:00am May 12, 2023 3:32pm spironolactone 25 mg oral tablet (1 source) Aldosterone Antagonist Start: 10-10-19 spironolactone(ALDACTO NE 25 MG TAB) Take 4 tablet daily. for acne 0 10/09/2008 Active Comment on above: Take 4 tablet daily. for acne Problems Active Problems Problem Classification Problem Date Documented Da te Episodic/Chronic Cardiac dysrhythmias (20 sources) Palpitations; Translations: [Palpitations] Onset: 11-08-2024 01-20-2023 Episodic Essential hypertension (10 sources) Hypertensive disorder; Translations: [Essential (primary) hypertension] Onset: 11-08-2024 01-18-2023 Chronic Osteoarthritis (1 source) Arthritis associated with another disorder; Translations: [Unspecified osteoarthritis, unspecified site] Onset: 06-07-2009 06-07-2009 Chronic Other connective tissue disease (4 sources) Plantar fascial fibromatosis; Translations: [Plantar fascial fibromatosis] 01-18-2023 Episodic Other inflammatory condition of skin (6 sources) Psoriatic arthritis; Translations: [Arthropathic psoriasis, unspecified] Onset: 01-13-2019 01-20-2023 Chronic Other inflammatory condition of skin (4 sources) Arthropathic psoriasis, unspecified; Translations: [Psoriatic arthropathy] Onset: 11-08-2024 01-20-2023 Chronic Other lower respiratory disease (1 source) Dyspnea on exertion; Translations: [Other forms of dyspnea] 11-08-2024 Episodic Other lower respiratory disease (2 sources) Other forms of dyspnea; Translations: [Other forms of dyspnea] Onset: 11-08-2024 Episodic Other nervous system disorders (4 sources) Tarsal tunnel syndrome; Translations: [Tarsal tunnel syndrome, unspecified lower limb] 01-18-2023 Chronic Unclassified (2 sources) R00.2 - Palpitations,R00.0 - Tachycardia, unspecified Past or Other Problems Problem Classification Problem Date Documented Da te Episodic/Chronic Other connective tissue disease (1 source) Bilateral plantar fasciitis; Translations: [Plantar fascial fibromatosis] Onset: 01-13-2019 01-13-2019 Episodic Results Test Name Value Interpretation Reference Range Facility Cardiology Visit Reporton Cardiology Visit Report [facility] [address] [place] [address] OFFICE VISIT Date of Service: 11/08/24 MR#: [id number] Acct: [id number] Name: KELYLEONEL STRONG Rep #: [id number] : 1960 Provider: JUNIOR diaz Age/Sex: 63/F [place] [facility] [place]: Signed HPI HPI History of Present Illness Details: 63-year-old white female that presents with history of supraventricular tachycardia and hypertension. She had a Holter monitor done February 2023 this was 24 hours the average heart rate was 99 minimum was 83 in sinus rhythm maximum was 154 and sinus tach. She had 9 PACs that were all isolated there were no runs there was no atrial fibrillation noted. She denies chest, arm, jaw, or neck discomfort. She denies palpitations. She denies bilateral lower extremity edema. She denies claudication. She acknowledges shortness of breath with activity. She denies shortness of breath at rest, orthopnea, or PND. She denies chronic cough. She denies significant, sudden weight gain. She denies lightheadedness, dizziness, near-syncope, or syncope. She denies blood in urine, blood in stool, or epistaxis. He denies fever with chills. She denies myalgia. She acknowledges fatigue that she attributes to psoriatic arthritis. Her exercise level has remained stable. Intake Vital Signs 06/15/24 10:38 11/08/24 11:32 11/08/24 11:42 Height 5 ft 5 in 5 ft 5 in Weight: 223 lb BMI 37.0 BP 167/97 H 149/82 H Blood Pressure Location Lt brachial Rt brachial Position Sitting Sitting Respiration 16 16 Pulse 109 H 105 H Pulse Source NIBP NIBP Intake Visit Reasons: 3-6 M FU Shank Faker Required: No Is patient in pain?: No Allergies azithromycin (From Zithromax) Allergy (Verified 11/08/24 11:34) unknown cefprozil (From Cefzil) Allergy (Verified 11/08/24 11:34) Rash hydroxychloroquine (From Plaquenil) Allergy (Verified 11/08/24 11:34) unknown amlodipine Adverse Reaction (Intermediate, Verified 11/08/24 11:34) Marked swelling in hands atenolol Adverse Reaction (Intermediate, Verified 11/08/24 11:34) Severe diarrhea carvedilol Adverse Reaction (Intermediate, Verified 11/08/24 11:34) Nausea diltiazem Adverse Reaction (Intermediate, Verified 11/08/24 11:34) Hair Loss, knuckles swelling metoprolol Adverse Reaction (Intermediate, Verified 11/08/24 11:34) Joint swelling Medications ???Medication ???Instructions ???Recorded ???Confirmed ???Type cholecalciferol (vitamin D3) 25 25 mcg PO DAILY 01/18/23 11/08/24 History mcg (1,000 unit) capsule secukinumab 75 mg/0.5 mL 300 mg subcut Q4W CLARIFY DOSE 11/08/24 History subcutaneous syringe (Cosentyx) WITH PATIENT, Subscription Crew Leader ordered nebivolol 10 mg tablet 5 mg PO TID 11/08/24 11/08/24 Hist ory Ejection fraction %: 70 Have you fallen in the past year?: No PFSH Medical History Psoriasis Anxiety Hypertension Plantar fascial fibromatosis Tarsal tunnel syndrome Surgical History History of cystoscopy History of right knee surgery Family History Father Idiopathic myelofibrosis Mother Thyroid disorder Colon cancer Grandmother Arthritis Social History Smoking Status: Never smoker alcohol intake: current alcohol intake frequency: holidays/special occasions only substance use type: does not use caffeine: Yes Type: carbonated beverages Number of servings: 1 ROS Const Const: Positive for fatigue (Frequent rests related to psoriatic arthritis); Negative for weakness Eyes Eyes: Negative for change in vision ENT ENT: Negative for dizziness or balance problems Cardio Chest Pain: No Palpitations: No Edema: Bilateral (Mild-unchanged) Muscle aches with walking: None Resp Respiratory: Positive for SOB with activity (With increased exertion); Negative for SOB at rest or SOB orthopnea SOB lying down GI GI: Negative nausea or heartburn : Negative for hematuria or frequent nighttime urination/ nocturia Musc Musc: Negative for balance problems Skin Skin: Negative non-healing lesions or rash Neuro Neuro: Negative for dizziness, lightheadedness, near syncope, syncope or weakness Endo Endo: Positive for fatigue (Frequent rests related to psoriatic arthritis) Allergy Allergy/Immunology: Negative for rash Cardiology Exam Const Appearance: cooperative, healthy appearing, comfortable and no acute distress Nutritional Appearance: well nourished and obese Orientation: alert, awake and oriented x3 Head Head: normal to inspection Ears: hearing grossly normal bilaterally Nose: external nose normal Face and Sinus: face symmetric Mouth: mois (more content not included)... Normal [facility] 12 Lead [place] [facility]-15-2024 12 Lead EKG performed by [facility] [address] [place] [address] 12 Lead EKG [place] [facility] 06/15/24 1032 MR#: [id number] Acct: [id number] Name: LEONEL EDGE Rep #: [id number] : 1960 63 From: Osito PACHECO Attending Dr: JUNIOR Fagan Status: DEP AMB Ordering Dr: Osito Mohamud NP Date: 06/15/24 [place] [facility] [place]: F C Admitted: BMS/12 Lead EKG performed [place] [facility] ECG Report Interpretation -----Sinus Tachycardia -Nonspecific ST depression. ABNORMAL Electronically signed on 06/15/2024 at 11:42 by Josh [employer] Version [id number] 06/15/24 1143 Date Osito PACHECO CC: No Primary Care Physician Date Dictated: 06/15/24 1032 Date Transcribed: 06/15/24 1032 Probate Judge: JEFERSON Signed Normal [facility] Cardiology Visit Reporton Cardiology Visit Report [facility] [address] [place] [address]. [address] [place] [address] OFFICE VISIT Date of Service: 06/15/24 MR#: [id number] Acct: [id number] Name: LEONEL EDGE Rep #: [id number] : 1960 Provider: JUNIOR diaz Age/Sex: 63/F [place] [facility] [place]: Signed HPI HPI History of Present Illness Details: 63-year-old white female that presents with history of supraventricular tachycardia and hypertension. She had a Holter monitor done February 2023 this was 24 hours the average heart rate was 99 minimum was 83 in sinus rhythm maximum was 154 and sinus tach. She had 9 PACs that were all isolated there were no runs there was no atrial fibrillation noted. She denies chest, arm, jaw, or neck discomfort. She denies palpitations. She denies bilateral lower extremity edema. She denies claudication. She denies shortness of breath with activity, shortness of breath at rest, orthopnea, or PND. She denies chronic cough. She denies significant, sudden weight gain. She denies lightheadedness, dizziness, near-syncope, or syncope. She denies blood in urine, blood in stool, or epistaxis. He denies fever with chills. She denies myalgia. She denies fatigue. Her exercise level has remained stable. Intake Vital Signs 05/03/23 13:29 06/15/24 07:44 06/15/24 10:38 Height 5 ft 5 in 5 ft 5 in 5 ft 5 in Weight: 216 lb BMI 35.9 BP 171/95 H Blood Pressure Location Lt brachial Position Sitting Respiration 18 Pulse 135 H Pulse Source Monitor Pulse Oximetry (%) 99 Intake Visit Reasons: 1 Y FU Allergies azithromycin (From Zithromax) Allergy (Verified 06/15/24 10:28) unknown cefprozil (From Cefzil) Allergy (Verified 06/15/24 10:28) Rash hydroxychloroquine (From Plaquenil) Allergy (Verified 06/15/24 10:28) unknown amlodipine Adverse Reaction (Intermediate, Verified 06/15/24 10:28) Marked swelling in hands atenolol Adverse Reaction (Intermediate, Verified 06/15/24 10:28) Severe diarrhea metoprolol Adverse Reaction (Intermediate, Verified 06/15/24 10:28) Joint swelling Medications ???Medication ???Instructions ???Recorded ???Confirmed ???Type cholecalciferol (vitamin D3) 25 25 mcg PO DAILY 01/18/23 06/15/24 History mcg (1,000 unit) capsule nebivolol 5 mg tablet 5 mg PO DAILY #30 tabs 09/21/23 Rx diltiazem HCl 120 mg capsule,24 120 mg PO DAILY #30 caps 06/15/24 06/15/24 Rx hr,extended release secukinumab 75 mg/0.5 mL 300 mg subcut Q4W CLARIFY DOSE 06/15/24 History subcutaneous syringe (Cosentyx) WITH PATIENT, Subscription Crew Leader ordered [facility] Medical History Psoriasis Anxiety Hypertension Plantar fascial fibromatosis Tarsal tunnel syndrome Surgical History History of cystoscopy History of right knee surgery Family History Father Idiopathic myelofibrosis Mother Thyroid disorder Colon cancer Grandmother Arthritis Social History Smoking Status: Never smoker alcohol intake: current alcohol intake frequency: holidays/special occasions only substance use type: does not use caffeine: Yes Type: carbonated beverages Number of servings: 1 ROS Const Const: Negative for fatigue, weakness, body ache, fever(s) or chills ENT ENT: Negative for dizziness or Nosebleed/epistaxis Cardio Chest Pain: No Palpitations: No Edema: None Muscle aches with walking: None Resp Respiratory: Negative for SOB with activity, SOB at rest, SOB orthopnea SOB lying down, Cough or paroxysmal nocturnal dyspnea GI GI: Negative nausea, vomiting blood/hematemesis, bright, red blood in stools or black,tarry stools : Negative for hematuria or frequent nighttime urination/ nocturia Musc Musc: Negative for muscle aches/ myalgia Skin Skin: Negative non-healing lesions or rash Neuro Neuro: Negative for dizziness, lightheadedness, near syncope, syncope, orthostatic symptoms or weakness Endo Endo: Negative for fatigue Allergy Allergy/Immunology: Negative for rash Cardiology Exam Const Appearance: cooperative, healthy appearing, comfortable and no acute distress Nutritional Appearance: well nourished and obese Orientation: alert, awake and oriented x3 Head Head: normal to inspection Ears: hearing grossly normal bilaterally Nose: external nose normal Face and Sinus: face symmetric Mouth: moist mucous membranes Eyes General: appearance normal, both eyes and all related structures Eyelids: eyelids normal EOM: EOM intact bilaterally Neck Neck: normal visual inspection and no JVD Carotids: normal carotid upstroke Chest Chest inspection: no (more content not included)... Normal [facility] Absolute lymphocyte countOrd ered By: DENNIS JERRY on 05-03-2023 Lymphocytes Auto (Unsp spec) [#/Vol] 2.06 10*3/uL 0.83-4.51 [facility] Automated lymphocyte count a s percentage of total leukocytesOrdered By: DENNIS JERRY on 05-03-2023 Lymphocytes/100 WBC Auto (Unsp spec) 22.6 % 19-41 [facility] Basophil percentageOrdered B y: DENNIS JERRY on 05-03-2023 Basophils/100 WBC (Bld) 1.5 % 0-1 [facility] Bilirubin [Mass/Vol] 0.50 mg/dL 0.20-1.00 [facility] Comment on above: For patients on eltr ombopag therapy, use of Dimension Clover TBIL is not recommended. Eosinophils/100 WBC (Bld) 1.4 % 0-5 [facility] Hemoglobin (Bld) [Mass/Vol] 12.7 g/dL 12.0-15.0 [facility] Monocytes/100 WBC (Bld) 18.0 % 0-10 [facility] Neutrophils (Bld) [#/Vol] 4.9 10*3/uL 2.0-7.7 [facility] Neutrophils/100 WBC (Bld) 53.8 % 47-70 [facility] Protein [Mass/Vol] 8.0 g/dL 6.4-8.2 [facility] WBC (Bld) [#/Vol] 9.1 10*3/uL 4.4-11.0 [facility] Blood manual differential co mment interpretation (narrative result)Ordered By: DENNIS JERRY on 05-03-2023 Manual differential comment Noam (Bld) [Interp] SCANNED [facility] Determination of erythrocyte mean corpuscular volume (MCV)Ordered By: DENNIS JERRY on 05-03-2023 MCV (RBC) [Entitic vol] 86.9 fL 81-99 [facility] Direct bilirubinOrdered By: DENNIS JERRY on 05-03-2023 Bilirubin.direct [Mass/Vol] 0.14 mg/dL 0.00-0.30 [facility] Erythrocyte distribution wid th ratioOrdered By: DENNIS JERRY on 05-03-2023 Erythrocyte distribution width (RBC) [Ratio] 13.5 % 11.6-14.6 [facility] Erythrocyte distribution wid th standard deviationOrdered By: DENNIS JERRY on 05-03-2023 Erythrocyte distribution width (RBC) [Entitic vol] 43.0 fL 35.1-43.9 [facility] Erythrocyte sedimentation ra teOrdered By: DENNIS JERRY on 05-03-2023 ESR (Bld) [Velocity] 116 mm/h 0-30 [facility] Hematocrit Auto (Bld) [Volum e fraction]Ordered By: DENNIS JERRY on 05-03-2023 Hematocrit (Bld) [Volume fraction] 41.2 % 37-47 [facility] Immature granulocytes/100 WB C Auto (Bld)Ordered By: DENNIS JERRY on 05-03-2023 Immature granulocytes/100 WBC (Bld) 2.700 % 0.0-0.9 [facility] Comment on above: IG% - Immature Granu locytes (promyelocytes, myelocytes and metamyelocytes) > 1% indicates that a LEFT SHIFT is Present. Laboratory - Chemistry and C hemistry - challengeOrdered By: DENNIS JERRY on 05-03-2023 ALP [Catalytic activity/Vol] 79 U/L 45-117 [facility] ALT [Catalytic activity/Vol] 28 U/L 13-56 [facility] Globulin (S) [Mass/Vol] 5.0 g/dL 2.2-4.2 [facility] Laboratory - Hematology and Cell countsOrdered By: DENNIS JERRY on 05-03-2023 MCH (RBC) [Entitic mass] 26.8 pg 27.0-32.0 [facility] MCHC (RBC) [Mass/Vol] 30.8 g/dL 32-36 [facility] Nucleated RBC/100 WBC (Bld) [Ratio] 0 % 0-5 [facility] Platelets (Bld) [#/Vol] 594 10*3/uL 150-450 [facility] No Panel InformationOrdered By: DENNIS JERRY on 05-03-2023 C-Reactive Protein Extended Range 75.60 mg/L 0.0-3.0 [facility] Comment on above: C-Reactive Protein ( CRP) provides useful information for thediagnosis, therapy and monitoring of inflammatory processesand associated diseases. For the evaluation of Relative Riskfor Cardiovascular Disease, a High Sensitivity CRP (HSCRP)should be ordered. Estimated GFR (MDRD) Amer 78 mL/min >60 [facility] Comment on above: GFR Calc Estimated GFR (MDRD) Non-Af Amer 64 mL/min >60 [facility] Comment on above: Non- GFR Calc Platelet mean volume Negrito-Ec ker (Bld) [Entitic vol]Ordered By: DENNIS JERRY on 05-03-2023 Platelet mean volume (Bld) [Entitic vol] 10.1 fL 6.2-12.0 [facility] RBC Auto (Bld) [#/Vol]Ordere d By: DENNIS JERRY on 05-03-2023 RBC (Bld) [#/Vol] 4.74 10*6/uL 4.2-5.4 [facility] Serum or plasma creatinine m easurement (mass/volume)Ordered By: DENNIS JERRY on 05-03-2023 Creatinine [Mass/Vol] 0.94 mg/dL 0.55-1.02 [facility] Comment on above: The validity of the calculated GFR & GFRAA in patients over 70 years has not been determined. Clinical correlation is essential. Thin prep Papanicolaou smear with manual screeningOrdered By: DENNIS JERRY on 05-03-2023 Thin prep Papanicolaou smear with manual screening 3.0 g/dL 3.2-5.0 [facility] Thin prep Papanicolaou smear with manual screening 37 U/L 15-37 [facility] Comment on above: Slight Hemolysis, Re sult may be falsely increased. Absolute lymphocyte countOrd ered By: DENNIS JERRY on 03-10-2023 Lymphocytes Auto (Unsp spec) [#/Vol] 1.41 10*3/uL 0.83-4.51 [facility] Basophil percentageOrdered B y: DENNIS JERRY on 03-10-2023 Basophils/100 WBC (Bld) 1.0 % 0-1 [facility] Bilirubin [Mass/Vol] 0.50 mg/dL 0.20-1.00 [facility] Comment on above: For patients on eltr ombopag therapy, use of Dimension Clover TBIL is not recommended. Eosinophils/100 WBC (Bld) 0.3 % 0-5 [facility] Neutrophils (Bld) [#/Vol] 7.5 10*3/uL 2.0-7.7 [facility] Neutrophils/100 WBC (Bld) 73.6 % 47-70 [facility] Protein [Mass/Vol] 8.5 g/dL 6.4-8.2 [facility] WBC (Bld) [#/Vol] 10.2 10*3/uL 4.4-11.0 [facility] Blood erythrocytes count (nu mber/volume)Ordered By: DENNIS JERRY on 03-10-2023 RBC (Bld) [#/Vol] 5.02 10*6/uL 4.2-5.4 [facility] Blood hemoglobin measurement (mass/volume)Ordered By: DENNIS JERRY on 03-10-2023 Hemoglobin (Bld) [Mass/Vol] 13.7 g/dL 12.0-15.0 [facility] Blood lymphocytes/100 leukoc ytesOrdered By: DENNIS JERRY on 03-10-2023 Lymphocytes/100 WBC (Bld) 13.9 % 19-41 [facility] Blood monocytes/100 leukocyt esOrdered By: DENNIS JERRY on 03-10-2023 Monocytes/100 WBC (Bld) 10.9 % 0-10 [facility] Blood platelet mean volumeOr dered By: DENNIS JERRY on 03-10-2023 Platelet mean volume (Bld) [Entitic vol] 9.9 fL 6.2-12.0 [facility] Determination of erythrocyte mean corpuscular volume (MCV)Ordered By: DENNIS JERRY on 03-10-2023 MCV (RBC) [Entitic vol] 87.5 fL 81-99 [facility] Direct bilirubinOrdered By: DENNIS JERRY on 03-10-2023 Bilirubin.direct [Mass/Vol] 0.11 mg/dL 0.00-0.30 [facility] Erythrocyte sedimentation ra teOrdered By: DENNIS JERRY on 03-10-2023 ESR (Bld) [Velocity] 92 mm/h 0-30 [facility] Hematocrit Auto (Bld) [Volum e fraction]Ordered By: DENNIS JERRY on 03-10-2023 Hematocrit (Bld) [Volume fraction] 43.9 % 37-47 [facility] Laboratory - Chemistry and C hemistry - challengeOrdered By: DENNIS JERRY on 03-10-2023 ALP [Catalytic activity/Vol] 86 U/L 45-117 [facility] ALT [Catalytic activity/Vol] 30 U/L 13-56 [facility] Globulin (S) [Mass/Vol] 5.0 g/dL 2.2-4.2 [facility] Laboratory - Hematology and Cell countsOrdered By: DENNIS JERRY on 03-10-2023 Erythrocyte distribution width (RBC) [Entitic vol] 46.7 fL 35.1-43.9 [facility] Erythrocyte distribution width (RBC) [Ratio] 14.7 % 11.6-14.6 [facility] Immature granulocytes/100 WBC (Bld) 0.300 % 0.0-0.9 [facility] Comment on above: IG% - Immature Granu locytes (promyelocytes, myelocytes and metamyelocytes) > 1% indicates that a LEFT SHIFT is Present. MCH (RBC) [Entitic mass] 27.3 pg 27.0-32.0 [facility] Nucleated RBC/100 WBC (Bld) [Ratio] 0 % 0-5 [facility] MCHC Auto (RBC) [Mass/Vol]Or dered By: DENNIS JERRY on 03-10-2023 MCHC (RBC) [Mass/Vol] 31.2 g/dL 32-36 [facility] No Panel InformationOrdered By: DENNIS JERRY on 03-10-2023 Estimated GFR (MDRD) Amer 71 mL/min >60 [facility] Comment on above: GFR Calc Estimated GFR (MDRD) Non-Af Amer 59 mL/min >60 [facility] Comment on above: Non- GFR Calc Platelets bldOrdered By: SHILPI JERRY on 03-10-2023 Platelets (Bld) [#/Vol] 502 10*3/uL 150-450 [facility] Serum or plasma C reactive p rotein measurement (mass/volume)Ordered By: DENNIS JERRY on 03-10-2023 CRP [Mass/Vol] 47.80 mg/L 0.0-3.0 [facility] Comment on above: C-Reactive Protein ( CRP) provides useful information for thediagnosis, therapy and monitoring of inflammatory processesand associated diseases. For the evaluation of Relative Riskfor Cardiovascular Disease, a High Sensitivity CRP (HSCRP)should be ordered. Serum or plasma albumin leslie urement (mass/volume)Ordered By: DENNIS JERRY on 03-10-2023 Albumin [Mass/Vol] 3.5 g/dL 3.2-5.0 [facility] Serum or plasma creatinine m easurement (mass/volume)Ordered By: DENNIS JERRY on 03-10-2023 Creatinine [Mass/Vol] 1.01 mg/dL 0.55-1.02 [facility] Comment on above: The validity of the calculated GFR & GFRAA in patients over 70 years has not been determined. Clinical correlation is essential. Thin prep Papanicolaou smear with manual screeningOrdered By: DENNIS JERRY on 03-10-2023 Thin prep Papanicolaou smear with manual screening 39 U/L 15-37 [facility] Basophil percentageOrdered B y: Nuzhat Jade on 01-29-2023 Bilirubin [Mass/Vol] 0.50 mg/dL 0.20-1.00 [facility] Comment on above: For patients on eltr ombopag therapy, use of Dimension Clover TBIL is not recommended. Chloride [Moles/Vol] 103 mmol/L 98-107 [facility] Glucose [Mass/Vol] 210 mg/dL 74-106 [facility] Comment on above: Glucose result great er than or equal to 200 mg/dLsuggests DIABETES MELLITUS per A.D.A. criteria. Potassium [Moles/Vol] 3.9 mmol/L 3.5-5.1 [facility] Protein [Mass/Vol] 8.2 g/dL 6.4-8.2 [facility] Sodium [Moles/Vol] 136 mmol/L 136-145 [facility] Laboratory - Chemistry and C hemistry - challengeOrdered By: Nuzhat Jade on 01-29-2023 ALP [Catalytic activity/Vol] 86 U/L 45-117 [facility] ALT [Catalytic activity/Vol] 37 U/L 13-56 [facility] CO2 [Moles/Vol] 24.0 mmol/L 21.0-32.0 [facility] Globulin (S) [Mass/Vol] 5.2 g/dL 2.2-4.2 [facility] Urea nitrogen/Creatinine [Mass ratio] 9.6 mg/mg 10-20 [facility] No Panel InformationOrdered By: Nuzhat Jade on 01-29-2023 Estimated GFR (MDRD) Amer 62 mL/min >60 [facility] Comment on above: GFR Calc Estimated GFR (MDRD) Non-Af Amer 51 mL/min >60 [facility] Comment on above: Non- GFR Calc Thyroid Stimulating Hormone (TSH) 2.78 uIU/mL 0.358-3.74 [facility] Serum or plasma albumin leslie urement (mass/volume)Ordered By: Nuzhatkira Jade on 01-29-2023 Albumin [Mass/Vol] 3.0 g/dL 3.2-5.0 [facility] Serum or plasma albumin/glob ulin mass ratioOrdered By: Nuzhatkira Jade on 01-29-2023 Albumin/Globulin [Mass ratio] 0.6 {ratio} 0.9-2.4 [facility] Serum or plasma calcium leslie urement (mass/volume)Ordered By: Nuzhat Jade on 01-29-2023 Calcium [Mass/Vol] 8.9 mg/dL 8.5-10.1 [facility] Serum or plasma creatinine m easurement (mass/volume)Ordered By: Nuzhat Jade on 01-29-2023 Creatinine [Mass/Vol] 1.14 mg/dL 0.55-1.02 [facility] Comment on above: The validity of the calculated GFR & GFRAA in patients over 70 years has not been determined. Clinical correlation is essential. Serum or plasma urea nitroge n measurement (mass/volume)Ordered By: Nuzhat Jade on 01-29-2023 Urea nitrogen [Mass/Vol] 11 mg/dL 7-18 [facility] Thin prep Papanicolaou smear with manual screeningOrdered By: Nuzhat Jade on 01-29-2023 Thin prep Papanicolaou smear with manual screening 42 U/L 15-37 [facility] Thin prep Papanicolaou smear with manual screening 9 5-15 [facility] Absolute lymphocyte countOrd ered By: DENNIS JERRY on 01-06-2023 Lymphocytes Auto (Unsp spec) [#/Vol] 2.19 10*3/uL 0.83-4.51 [facility] Basophil percentageOrdered B y: DENNIS JERRY on 01-06-2023 Basophils/100 WBC (Bld) 1.2 % 0-1 [facility] Bilirubin [Mass/Vol] 0.50 mg/dL 0.20-1.00 [facility] Comment on above: For patients on eltr ombopag therapy, use of Dimension Clover TBIL is not recommended. Eosinophils/100 WBC (Bld) 2.5 % 0-5 [facility] Neutrophils (Bld) [#/Vol] 4.8 10*3/uL 2.0-7.7 [facility] Neutrophils/100 WBC (Bld) 57.7 % 47-70 [facility] Protein [Mass/Vol] 8.7 g/dL 6.4-8.2 [facility] WBC (Bld) [#/Vol] 8.3 10*3/uL 4.4-11.0 [facility] Blood erythrocytes count (nu mber/volume)Ordered By: DENNIS JERRY on 01-06-2023 RBC (Bld) [#/Vol] 4.64 10*6/uL 4.2-5.4 [facility] Blood hemoglobin measurement (mass/volume)Ordered By: DENNIS JERRY on 01-06-2023 Hemoglobin (Bld) [Mass/Vol] 13.2 g/dL 12.0-15.0 [facility] Blood lymphocytes/100 leukoc ytesOrdered By: DENNIS JERRY on 01-06-2023 Lymphocytes/100 WBC (Bld) 26.5 % 19-41 [facility] Blood manual differential co mment interpretation (narrative result)Ordered By: DENNIS JERRY on 01-06-2023 Manual differential comment Noam (Bld) [Interp] SCANNED [facility] Blood monocytes/100 leukocyt esOrdered By: DENNIS JERRY on 01-06-2023 Monocytes/100 WBC (Bld) 11.6 % 0-10 [facility] Blood platelet mean volumeOr dered By: DENNIS JERRY on 01-06-2023 Platelet mean volume (Bld) [Entitic vol] 10.5 fL 6.2-12.0 [facility] Determination of erythrocyte mean corpuscular volume (MCV)Ordered By: DENNIS JERRY on 01-06-2023 MCV (RBC) [Entitic vol] 89.4 fL 81-99 [facility] Direct bilirubinOrdered By: DENNIS JERRY on 01-06-2023 Bilirubin.direct [Mass/Vol] 0.12 mg/dL 0.00-0.30 [facility] Hematocrit Auto (Bld) [Volum e fraction]Ordered By: DENNIS JERRY on 01-06-2023 Hematocrit (Bld) [Volume fraction] 41.5 % 37-47 [facility] Laboratory - Chemistry and C hemistry - challengeOrdered By: DENNIS JERRY on 01-06-2023 ALP [Catalytic activity/Vol] 81 U/L 45-117 [facility] ALT [Catalytic activity/Vol] 23 U/L 13-56 [facility] Globulin (S) [Mass/Vol] 5.6 g/dL 2.2-4.2 [facility] Laboratory - Hematology and Cell countsOrdered By: DENNIS JERRY on 01-06-2023 Erythrocyte distribution width (RBC) [Entitic vol] 41.3 fL 35.1-43.9 [facility] Erythrocyte distribution width (RBC) [Ratio] 12.7 % 11.6-14.6 [facility] Immature granulocytes/100 WBC (Bld) 0.500 % 0.0-0.9 [facility] Comment on above: IG% - Immature Granu locytes (promyelocytes, myelocytes and metamyelocytes) > 1% indicates that a LEFT SHIFT is Present. MCH (RBC) [Entitic mass] 28.4 pg 27.0-32.0 [facility] Nucleated RBC/100 WBC (Bld) [Ratio] 0 % 0-5 [facility] MCHC Auto (RBC) [Mass/Vol]Or dered By: DENNIS JERRY on 01-06-2023 MCHC (RBC) [Mass/Vol] 31.8 g/dL 32-36 [facility] No Panel InformationOrdered By: DENNIS JERRY on 01-06-2023 Estimated GFR (MDRD) Amer 68 mL/min >60 [facility] Comment on above: GFR Calc Estimated GFR (MDRD) Non-Af Amer 56 mL/min >60 [facility] Comment on above: Non- GFR Calc Platelets bldOrdered By: SHILPI JERRY on 01-06-2023 Platelets (Bld) [#/Vol] 506 10*3/uL 150-450 [facility] Serum or plasma albumin leslie urement (mass/volume)Ordered By: DENNIS JERRY on 01-06-2023 Albumin [Mass/Vol] 3.1 g/dL 3.2-5.0 [facility] Serum or plasma creatinine m easurement (mass/volume)Ordered By: DENNIS JERRY on 01-06-2023 Creatinine [Mass/Vol] 1.06 mg/dL 0.55-1.02 [facility] Comment on above: The validity of the calculated GFR & GFRAA in patients over 70 years has not been determined. Clinical correlation is essential. Thin prep Papanicolaou smear with manual screeningOrdered By: DENNIS JERRY on 01-06-2023 Thin prep Papanicolaou smear with manual screening 26 U/L 15-37 [facility] Cervical or vagninal specime n microscopic examination by cytology stain (reported asOrdered By: Adina Guzmán on 10-22-2022 Cytology report Cyto stain Doc (Cvx/Vag) Comment . [facility] Comment on above: The Pap smear is a s creening test designed to aid in thedetection of premalignant and malignant conditions of theuterine cervix. It is not a diagnostic procedure andshould not be used as the sole means of detecting cervicalcancer. Both false-positive and false-negative reports dooccur. Detection in cervical specim en of any of human papilloma virus (HPV) 16, 18, 31, 33,Ordered By: Adina Guzmán on 10-22-2022 HPV 16+18+31+33+35+39+45+51 +52+56+58+59+68 DNA Probe+sig amp Ql (Cvx) Negative [facility] Laboratory - CytologyOrdered By: Adina Guzmán on 10-22-2022 Clinical Dietitian Cyto stain Nom (Cvx/Vag) [ID] Comment . [facility] Comment on above: Arthur Becker totechnologist (ASCP) Laboratory - Miscellaneous t estsOrdered By: Adina Guzmán on 10-22-2022 Service comment (Unsp spec) [Interp] Comment . [facility] Comment on above: This liquid based Th inPrep(R) pap test was screened withthe use of an image guided system. Service comment (Unsp spec) [Interp] . . [facility] No Panel InformationOrdered By: Adina Guzmán on 10-22-2022 Pathology report final diagnosis Narrative Comment . [facility] Comment on above: NEGATIVE FOR INTRAEP ITHELIAL LESION OR MALIGNANCY. Absolute lymphocyte countOrd ered By: Adina Guzmán on 08-06-2022 Lymphocytes Auto (Unsp spec) [#/Vol] 1.22 10*3/uL 0.83-4.51 [facility] Basophil percentageOrdered B y: Adina Guzmán on 08-06-2022 Basophils/100 WBC (Bld) 0.9 % 0-1 [facility] Bilirubin [Mass/Vol] 0.40 mg/dL 0.20-1.00 [facility] Comment on above: For patients on eltr ombopag therapy, use of Dimension Clover TBIL is not recommended. Chloride [Moles/Vol] 105 mmol/L 98-107 [facility] Cholesterol [Mass/Vol] 215 mg/dL <200 [facility] Comment on above: <200 mg/dL Desirable 200-240 mg/dL Borderline >240 mg/dL High Risk Eosinophils/100 WBC (Bld) 0.4 % 0-5 [facility] Glucose [Mass/Vol] 112 mg/dL 74-106 [facility] Comment on above: Fasting Glucose resu lt from 100 to 125 mg/dL suggests IMPAIRED HOMEOSTASIS per A.D.A. criteria. Neutrophils (Bld) [#/Vol] 5.6 10*3/uL 2.0-7.7 [facility] Neutrophils/100 WBC (Bld) 74.4 % 47-70 [facility] Potassium [Moles/Vol] 4.1 mmol/L 3.5-5.1 [facility] Protein [Mass/Vol] 8.5 g/dL 6.4-8.2 [facility] Sodium [Moles/Vol] 139 mmol/L 136-145 [facility] Triglyceride [Mass/Vol] 115 mg/dL <199 [facility] Comment on above: The drugs N-Acetylcy steine and Metamizole may falsely depress this assay.Serum Triglycerides Reference Interval Normal <150 mg/dL Borderline high 150 - 199 mg/dL High 200 - 499 mg/dL Very High > or = 500 mg/dL WBC (Bld) [#/Vol] 7.5 10*3/uL 4.4-11.0 [facility] Blood erythrocytes count (nu mber/volume)Ordered By: Adina Guzmán on 08-06-2022 RBC (Bld) [#/Vol] 4.84 10*6/uL 4.2-5.4 [facility] Blood hemoglobin measurement (mass/volume)Ordered By: Adina Guzmán on 08-06-2022 Hemoglobin (Bld) [Mass/Vol] 14.2 g/dL 12.0-15.0 [facility] Blood lymphocytes/100 leukoc ytesOrdered By: Adina Guzmán on 08-06-2022 Lymphocytes/100 WBC (Bld) 16.4 % 19-41 [facility] Blood monocytes/100 leukocyt esOrdered By: Adina Guzmán on 08-06-2022 Monocytes/100 WBC (Bld) 7.8 % 0-10 [facility] Blood platelet mean volumeOr dered By: Adina Guzmán on 08-06-2022 Platelet mean volume (Bld) [Entitic vol] 10.4 fL 6.2-12.0 [facility] Determination of erythrocyte mean corpuscular volume (MCV)Ordered By: Adina Guzmán on 08-06-2022 MCV (RBC) [Entitic vol] 91.3 fL 81-99 [facility] Hematocrit Auto (Bld) [Volum e fraction]Ordered By: Adina Guzmán on 08-06-2022 Hematocrit (Bld) [Volume fraction] 44.2 % 37-47 [facility] Laboratory - Chemistry and C hemistry - challengeOrdered By: Adina Guzmán on 08-06-2022 ALP [Catalytic activity/Vol] 90 U/L 45-117 [facility] ALT [Catalytic activity/Vol] 25 U/L 13-56 [facility] CO2 [Moles/Vol] 24.0 mmol/L 21.0-32.0 [facility] Globulin (S) [Mass/Vol] 4.8 g/dL 2.2-4.2 [facility] Urea nitrogen/Creatinine [Mass ratio] 15.6 mg/mg 10-20 [facility] Laboratory - Hematology and Cell countsOrdered By: Adina Guzmán on 08-06-2022 Erythrocyte distribution width (RBC) [Entitic vol] 43.5 fL 35.1-43.9 [facility] Erythrocyte distribution width (RBC) [Ratio] 13.1 % 11.6-14.6 [facility] Immature granulocytes/100 WBC (Bld) 0.100 % 0.0-0.9 [facility] Comment on above: IG% - Immature Granu locytes (promyelocytes, myelocytes and metamyelocytes) > 1% indicates that a LEFT SHIFT is Present. MCH (RBC) [Entitic mass] 29.3 pg 27.0-32.0 [facility] Nucleated RBC/100 WBC (Bld) [Ratio] 0 % 0-5 [facility] MCHC Auto (RBC) [Mass/Vol]Or dered By: Adina Guzmán on 08-06-2022 MCHC (RBC) [Mass/Vol] 32.1 g/dL 32-36 [facility] No Panel InformationOrdered By: Adina Guzmán on 08-06-2022 Estimated GFR (MDRD) Amer 76 mL/min >60 [facility] Comment on above: GFR Calc Estimated GFR (MDRD) Non-Af Amer 63 mL/min >60 [facility] Comment on above: Non- GFR Calc Thyroid Stimulating Hormone (TSH) 3.29 uIU/mL 0.358-3.74 [facility] Platelets bldOrdered By: Deonte nugentjia Arielle on 08-06-2022 Platelets (Bld) [#/Vol] 389 10*3/uL 150-450 [facility] Serum or plasma albumin leslie urement (mass/volume)Ordered By: Adina Guzmán on 08-06-2022 Albumin [Mass/Vol] 3.7 g/dL 3.2-5.0 [facility] Serum or plasma albumin/glob ulin mass ratioOrdered By: Adina Guzmán on 08-06-2022 Albumin/Globulin [Mass ratio] 0.8 {ratio} 0.9-2.4 [facility] Serum or plasma calcium leslie urement (mass/volume)Ordered By: Adina Guzmán on 08-06-2022 Calcium [Mass/Vol] 9.5 mg/dL 8.5-10.1 [facility] Serum or plasma cholesterol in HDL measurement (mass/volume)Ordered By: Adina Guzmán on 08-06-2022 Cholesterol in HDL [Mass/Vol] 44 mg/dL >40 [facility] Comment on above: The drugs N-Acetylcy steine and Metamizole may falsely depress this assay. Reference Range HDL <40 mg/dL Low HDL Cholesterol HDL >or= 60 mg/dL High HDL Cholesterol Serum or plasma cholesterol in VLDL measurement (mass/volume)Ordered By: Adina Guzmán on 08-06-2022 Cholesterol in VLDL [Mass/Vol] 23 mg/dL 5-40 [facility] Serum or plasma creatinine m easurement (mass/volume)Ordered By: Adina Guzmán on 08-06-2022 Creatinine [Mass/Vol] 0.96 mg/dL 0.55-1.02 [facility] Comment on above: The validity of the calculated GFR & GFRAA in patients over 70 years has not been determined. Clinical correlation is essential. Serum or plasma low density lipoprotein (LDL) cholesterol measurement (mass/volume)Ordered By: Adina Guzmán on 08-06-2022 Cholesterol in LDL [Mass/Vol] 148 mg/dL 0-130 [facility] Serum or plasma urea nitroge n measurement (mass/volume)Ordered By: Adina Guzmán on 08-06-2022 Urea nitrogen [Mass/Vol] 15 mg/dL 7-18 [facility] Thin prep Papanicolaou smear with manual screeningOrdered By: Adina Guzmán on 08-06-2022 Thin prep Papanicolaou smear with manual screening 26 U/L 15-37 [facility] Thin prep Papanicolaou smear with manual screening 10 5-15 [facility] Whole blood hemoglobin A1c/t otal hemoglobin ratio (mass fraction)Ordered By: Adina Guzmán on 08-06-2022 HbA1c (Bld) [Mass fraction] 5.2 % 3.8-5.6 [facility] Comment on above: Normal < 5.7 % Predi abetic 5.7 - 6.4 % Diabetic >or= 6.5 % Please note range changes. Vital Signs Date Time Vital Sign Value Performing Clinician Aster blackburn 11-08-2024 11:42-0400 Diastolic blood pressure 82 mm[Hg] No Primary Care Physician [facility] 11-08-2024 11:42-0400 Heart rate 105 /min No Primary Care Physician [facility] 11-08-2024 11:42-0400 Respiratory rate 16 /min No Primary Care Physician [facility] 11-08-2024 11:42-0400 Systolic blood pressure 149 mm[Hg] No Primary Care Physician [facility] 11-08-2024 11:32-0400 Body height 165.1 cm No Primary Care Physician [facility] 11-08-2024 11:32-0400 Body mass index (BMI) [Ratio] 37 kg/m2 No Primary Care Physician [facility] 11-08-2024 11:32-0400 Body weight 101.15 kg No Primary Care Physician [facility] 05-03-2023 13:29-0500 Body height 165.1 cm DO Adina Guzmán Work Phone: [facility] 05-03-2023 13:29-0500 Body mass index (BMI) [Ratio] 34.4 kg/m2 DO Adina Guzmán Work Phone: [facility] 05-03-2023 13:29-0500 Body weight 93.89 kg DO Adina Guzmán Work Phone: [facility] 05-03-2023 13:29-0500 Diastolic blood pressure 92 mm[Hg] DO Adina Arielle Work Phone: [facility] 05-03-2023 13:29-0500 Heart rate 158 /min DO Adina Arielle Work Phone: [facility] 05-03-2023 13:29-0500 Respiratory rate 18 /min DO Adina Arielle Work Phone: [facility] 05-03-2023 13:29-0500 Systolic blood pressure 192 mm[Hg] DO Adina Arielle Work Phone: [facility] 01-20-2023 10:56-0400 Diastolic blood pressure 88 mm[Hg] DO Adina Arielle Work Phone: [facility] 01-20-2023 10:56-0400 Systolic blood pressure 165 mm[Hg] DO Adina Arielle Work Phone: [facility] 01-20-2023 10:43-0400 Body height 165.1 cm DO Adina Arielle Work Phone: [facility] 01-20-2023 10:43-0400 Body mass index (BMI) [Ratio] 35.4 kg/m2 DO Adina Arielle Work Phone: [facility] 01-20-2023 10:43-0400 Body weight 96.61 kg DO Adina Arielle Work Phone: [facility] 01-20-2023 10:43-0400 Heart rate 126 /min DO Adina Arielle Work Phone: [facility] 01-20-2023 10:43-0400 Respiratory rate 18 /min DO Adina Arielle Work Phone: [facility] Encounters Encounter Date Encounter Type Care Provider Facility Start: 01-24-2025 ambulatory No Primary Car e Physician Facility:[facility] Start: 11-28-2024 ambulatory No Primary Car e Physician Facility:[facility] Start: 11-08-2024 End: 11-08-2024 Patient encounter procedure Osito Mohamud TOOL RO[employer] ATTENDANT-C -[place] [facility] Work Phone: Start: 11-08-2024 End: 11-08-2024 ambulatory No Primary Care Physician -[facility] Start: 06-15-2024 End: 06-15-2024 ambulatory Osito Mohamud TOOL ROOM ATTENDANT Facility[place] Start: 06-28-2023 Telephone encounter Emiliana Weiner MD Work Phone: General Surgery Comment on above: Opened In Error Start: 05-03-2023 End: 05-03-2023 ambulatory DO Adina Pridenger Work Phone: [facility] Work Phone: Start: 05-03-2023 End: 05-03-2023 Patient encounter procedure DO Adina Guzmán Work Phone: [facility] Work Phone: Start: 03-10-2023 End: 03-10-2023 Patient encounter procedure DO Adina Guzmán Work Phone: [facility] Work Phone: Start: 02-16-2023 Non-patient / Non-visit DO Deonte nugentjia Arielle Work Phone: [facility] Start: 02-16-2023 End: 02-16-2023 ambulatory DO Adina Pridenger Work Phone: [facility] Work Phone: Start: 02-16-2023 End: 02-16-2023 Patient encounter procedure DO Adina Pridenger Work Phone: [facility] Work Phone: Start: 01-29-2023 End: 01-29-2023 ambulatory DO Adina Pridenger Work Phone: [facility] Work Phone: Start: 01-29-2023 End: 01-29-2023 Patient encounter procedure DO Adina Guzmán Work Phone: [facility] [place] [place] Work Phone: Start: 01-20-2023 End: 01-20-2023 Patient encounter procedure DO Adina Guzmán Work Phone: [facility] Work Phone: Start: 01-06-2023 End: 01-06-2023 Patient encounter procedure DO Adina Guzmán Work Phone: [facility] [place] Work Phone: Start: 10-22-2022 End: 10-22-2022 ambulatory [facility] Work Phone: Start: 10-22-2022 End: 10-22-2022 Patient encounter procedure [facility] [place], [place] Work Phone: Start: 08-06-2022 End: 08-06-2022 ambulatory [facility] Work Phone: Start: 08-06-2022 End: 08-06-2022 Patient encounter procedure [facility] [place] Start: 06-27-2021 ambulatory [facility] Facility :[facility] Start: 06-23-2021 [facility] Facility :[facility] Start: 04-24-2021 ambulatory [facility] Facility :[facility] Plan of Treatment Date Care Activity Detail Author Start: 04-05-2023 Depression Assessment Depression Ass essment [facility] Start: 12-04-2022 Covid-19 Vaccine ( season) Covid-19 Vaccine ( season) [facility] Start: 12-04-2022 Influenza vaccination Influenza Vacc ine (#1) [facility] Start: 2020 RSV Vaccine (1 - 1-d ose 60+ series) RSV Vaccine (1 - 1-dose 60+ series) [facility] Start: 2010 Shingrix Vaccine (1 of 2) Colon grix Vaccine (1 of 2) [facility] Start: 2005 Diabetes Screening Diabetes Screenin g [facility] Start: 2005 Lipid panel Lipid Screening [facility] Start: 2005 Screening for malign ant neoplasm of colon [facility] Start: 2000 Screening for malign ant neoplasm of breast Mammogram Screening [facility] Start: 1990 Screening for malign ant neoplasm of cervix HPV Testing [facility] Start: 1981 Screening for malign ant neoplasm of cervix Pap Testing [facility] Start: 11-18-1979 Urine microalbumin profile DTaP,Tdap,Td Vaccine (1 - Tdap) [facility] Start: 1978 Hepatitis C screening Hepatitis C Sc reening [facility] Start: 1978 HIV screening HIV Screening [facility] 24 Hour ECG [facility] 24 Hour ECG [facility] Evaluation of diagno stic study results [facility] Path report.final Dx Spec [facility] Radionuclide imaging of perfusion of myocardium under exercise stress [facility] Payers Date Payer Category Payer Self-pay [id number] 2024 Private Health Insurance [id number] 2016 Unknown MMO MMO [employer] PPO [id number] 2016-Present [phone] [address] [place] [address] PPO [id number] 2016 Unknown [id number] 1960 Unknown [id number] 1960 Unknown [id number] Unknown [id number] Unknown [id number] Unknown [id number] Unknown [id number] Social History Date Type Detail Facility Tobacco smoking stat us NHIS Unknown if ever smoked [facility] Work Phone: Start: 1960 Sex Assigned At Female W [facility] Start: 01-20-2023 End: 05-03-2023 Tobacco smoking status NHIS Unknown if ever smoked [facility] Start: 01-13-2019 End: 05-03-2023 Tobacco smoking status NHIS Never smoked tobacco [facility] Start: 01-13-2019 Tobacco use and exposure Smokeless tobacco non-user [facility] Start: 01-13-2019 Alcohol intake Current drinke r of alcohol (finding) [facility] Start: 01-13-2019 End: 03-12-2020 History of Social function [facility] Start: 01-13-2019 End: 03-12-2020 Tobacco use panel [facility] National Score (1-100), lower number is lower risk Not on file [facility] Start: 06-07-2009 Alcohol Comment [facility] Start: 2022 Gender identity Identifies as female gender (finding) [facility] Evaluation note 11-08-2024 Note Date & Type Note Facility 11-08-2024 Evaluation note Diagnosis Onset Date Resolution Hypertension chronic November 08, 2024 11:12am Palpitations chronic November 08, 2024 11:12am Psoriatic arthritis chronic Augus t 2024 11:12am Tachycardia chronic November 08, 2 025 11:12am [facility] Work Phone: Progress note 11-08-2024 Note Date & Type Note Facility 11-08-2024 Progress note [facility] Progress note 11-08-2024 Note Date & Type Note Facility 11-08-2024 Progress note Note Date/Time November 08, 2024 12:49pm [facility] [address] [place] [address] OFFICE VISIT Date of Service: 11/08/24 MR#: [id number] Acct: [id number] Name: LEONEL EDGE Rep #: [id number] : 1960 Provider: JUNIOR Mohamud Age/Sex: 63/F [facility] [facility] Status: Signed HPI HPI History of Present Illness Details: 63-year-old white female that presents with history of supraventricular tachycardia and hypertension. She had a Holter monitor done February 2023 this was 24 hours the average heart rate was 99 minimum was 83 in sinus rhythm maximum was 154 and sinus tach. She had 9 PACs that were all isolated there were no runs there was no atrial fibrillation noted. She denies chest, arm, jaw, or neck discomfort. She denies palpitations. She denies bilateral lower extremity edema. She denies claudication. She acknowledges shortness of breath with activity. She denies shortness of breath at rest, orthopnea, or PND. She denies chronic cough. She denies significant, sudden weight gain. She denies lightheadedness, dizziness, near-syncope, or syncope. She denies blood in urine, blood in stool, or epistaxis. He denies fever with chills. She denies myalgia. She acknowledges fatigue that she attributes to psoriatic arthritis. Her exercise level has remained stable. Intake Vital Signs 06/15/24 10:38 11/08/24 11:32 11/08/24 11:42 Height 5 ft 5 in 5 ft 5 in Weight: 223 lb BMI 37.0 BP 167/97 H 149/82 H Blood Pressure Location Lt brachial Rt brachial Position Sitting Sitting Respiration 16 16 Pulse 109 H 105 H Pulse Source NIBP NIBP Intake Visit Reasons: 3-6 M FU Shank Faker Required: No Is patient in pain?: No Allergies azithromycin (From Zithromax) Allergy (Verified 11/08/24 11:34) unknown cefprozil (From Cefzil) Allergy (Verified 11/08/24 11:34) Rash hydroxychloroquine (From Plaquenil) Allergy (Verified 11/08/24 11:34) unknown amlodipine Adverse Reaction (Intermediate, Verified 11/08/24 11:34) Marked swelling in hands atenolol Adverse Reaction (Intermediate, Verified 11/08/24 11:34) Severe diarrhea carvedilol Adverse Reaction (Intermediate, Verified 11/08/24 11:34) Nausea diltiazem Adverse Reaction (Intermediate, Verified 11/08/24 11:34) Hair Loss, knuckles swelling metoprolol Adverse Reaction (Intermediate, Verified 11/08/24 11:34) Joint swelling Medications ?Medication ?Instructions ?Recorded ?Confirmed ?Type cholecalciferol (vitamin D3) 25 25 mcg PO DAILY 11/08/24 History mcg (1,000 unit) capsule secukinumab 75 mg/0.5 mL 300 mg subcut Q4W CLARIFY DO SE 06/15/24 11/08/24 H istory subcutaneous syringe (Cosentyx) WITH PATIENT, Rheumato logist ordered nebivolol 10 mg tablet 5 mg PO TID 11/08/24 5 History Ejection fraction %: 70 Have you fallen in the past year?: No PFSH Medical History Psoriasis Anxiety Hypertension Plantar fascial fibromatosis Tarsal tunnel syndrome Surgical History History of cystoscopy History of right knee surgery Family History Father Idiopathic myelofibrosis Mother Thyroid disorder Colon cancer Grandmother Arthritis Social History Smoking Status: Never smoker alcohol intake: current alcohol intake frequency: holidays/special occasions only substance use type: does not use caffeine: Yes Type: carbonated beverages Number of servings: 1 ROS Const Const: Positive for fatigue (Frequent rests related to psoriatic arthritis); Negative for weakness Eyes Eyes: Negative for change in vision ENT ENT: Negative for dizziness or balance problems Cardio Chest Pain: No Palpitations: No Edema: Bilateral (Mild-unchanged) Muscle aches with walking: None Resp Respiratory: Positive for SOB with activity (With increased exertion); Negative for SOB at rest or SOB orthopnea\SOB lying down GI GI: Negative nausea or heartburn : Negative for hematuria or frequent nighttime urination/ nocturia Musc Musc: Negative for balance problems Skin Skin: Negative non-healing lesions or rash Neuro Neuro: Negative for dizziness, lightheadedness, near syncope, syncope or weakness Endo Endo: Positive for fatigue (Frequent rests related to psoriatic arthritis) Allergy Allergy/Immunology: Negative for rash Cardiology Exam Const Appearance: cooperative, healthy appearing, comfortable and no acute distress Nutritional Appearance: well nourished and obese Orientation: alert, awake and oriented x3 Head Head: normal to inspection Ears: hearing grossly normal bilaterally Nose: external nose normal Face and Sinus: face symmetric Mouth: moist mucous membranes Eyes General: appearance normal, both eyes and all related structures Eyelids: eyelids normal EOM: EOM intact bilaterally Neck Neck: normal visual inspection and no JVD Carotids: normal carotid upstroke Chest Chest inspection: normal inspection of the chest, symmetric chest movement and normal respiratory effort; Negative cough Auscultation: Bilateral: Clear to Auscultation Cardio Rate: regular rate and tachycardic Rhythm: regular rhythm Heart sounds: S1 normal and S2 normal; Negative rub, gallop or murmur GI GI: normal to inspection and obese Neuro General: patient alert, patient awake, patient oriented x3 and CN's II-XI intactbilaterally Skin Skin: no rashes or lesions noted Extremities Pulses: Normal: Right Posterior Tibial Pulse, Left Posterior Tibial Pulse, RightRadial Pulse and Left Radial Pulse Lower Extremity Edema: None: Bilateral Psych Psychological: normal affect Supplemental Info Supplemental Information Echocardiogram 02/16/2023 Interpretation Summary Mild concentric left ventricular hypertrophy. The left ventricular ejection fraction is 70 %. Stage 1 diastolic dysfunction. Trivial pericardial effusion. Holter Monitor 02/16/2023 Interpretation There were a total of 142,138 beats recorded over the 24 hour period. Normal sinus rhythm. Average heart rate was 99 BPM. Minimum heart rate was 83 BPM at 20:49 PM, sinus rhythm. Maximum heart rate was 154 BPM at 11:04 AM, sinus tachycardia. The longest R-R interval was 1.0 seconds at 21:52 PM. There were a total of 9 premature supraventricular ectopic isolated beats. No runs noted. No atrial fibrillation noted. The patient kept a diary with no symptoms noted. Assessment and Plan Assessment and Plan (1) Palpitations: Status: Chronic Plan: Twelve-lead ECG on 11/08/2024 shows sinus rhythm at a rate of 79 bpm, [place] interval 140, QRS 86, and QTc 454. [place] is noted be 69 degrees. Twelve-lead ECG on 06/15/2024 showed sinus tachycardia at 128 bpm. Echocardiogram in February 2023 showed mild concentric LVH, LV function 70%, stage I diastolic dysfunction, and structurally normal valves. She is currently on Nebivolol 5 mg p.o. 3 times daily as she noted hair loss with diltiazem. She will proceed with repeat Holter monitor to evaluate tachycardia. She undergo repeat echocardiogram to ensure stable compared to previous. With her shortness of breath, she will proceed with a treadmill nuclear stress test to evaluate heart rate with activity along with ruling out ischemia component. Depending on test results, further recommendation be made. Her laboratory testing with insurance claims examiner in August 2024 showed no significant abnormality. (2) Hypertension: Status: Chronic Qualifiers: Hypertension type: primary hypertension Qualified Code(s): I10 - Essential (primary) hypertension Plan: She has been intolerant to multiple blood pressure medications that include amlodipine, atenolol, carvedilol, diltiazem, and metoprolol. She also acknowledges being intolerant to thiazide diuretic for unknown reason. Her blood pressure is well-controlled today. Will continue to monitor. (3) Tachycardia: Status: Chronic Plan: The etiology of her tachycardia remains unclear. She will proceed with workup as outlined above. Will seek the opinion of shop teacher with respect topossible etiology and additional workup that may be required versus ongoing medical therapy. (4) Psoriatic arthritis: Status: Chronic Plan: ESR on 08/2024 was noted be elevated at 87, which is improved compared to previous. Rheumatology office visit will be requested for continuity of care. Will await opinion from shop teacher regarding further autoimmune workup that may be contributing to her tachycardia. Orders: Orders Echo Complete Today R00.0 - Tachycardia, unspecified, R00.2 - Palpitations Cardiac Holter Monitor, 24 Hrs Today R00.0 - Tachycardia, unspecified, R00.2 - Palpitations 12 Lead EKG performed by [facility] Today R00.0 - Tachycardia, unspecified, R00.2 - Palpitations Nuclear Stress Test - Treadmil Today I10 - Essential (primary) hypertension, R00.0 - Tachycardia, unspecified, R00.2 - Palpitations, R06.09 - Other forms of dyspnea Referrals Electrophysiology R00.0 - Tachycardia, unspecified, R00.2 - Palpitations Plan Details Additional Comments: Thank you for allowing us to participate in the patients plan of care, if you have any questions please do not hesitate to call. Plan was reviewed with patient/family member along with red flag symptoms. Understanding was acknowledged. Questions were answered to apparent satisfaction. This note was generated using a voice recognition system and there may be incorrect words, spelling or punctuation that were not noted when reviewing the office note prior to saving. Portions of this documentation were copied and pasted from previous office visitnotes to provide a cohesive continuity of the history. The note has been reviewed, edited, and updated, as necessary. Follow Up: Rheumatology Office visit ([facility] [place]) 6 Months () Coding Level of Care Code Off vis,est,level 4 Diagnoses Palpitations R00.2 Primary hypertension I10 Hypertension type: primary hypertension Tachycardia R00.0 Psoriatic arthritis L40.50 Coding Level of Care Code Off vis,est,level 4 Diagnoses Palpitations R00.2 Primary hypertension I10 Hypertension type: primary hypertension Tachycardia R00.0 Psoriatic arthritis L40.50 Clinical Quality Measures Falls Risk Screening/Assistive Devices Have you fallen in the past year?: No Cardiac Ejection fraction %: 70 11/08/24 1249 <Electronically signed by Osito PACHECO> Date _ Osito PACHECO Cosigner Signature: Date (if applicable) CC: Sakina Guzmán DO ~ [facility] Work Phone: Clinical Note 10-22-2022 Note Date & Type Note Facility 10-22-2022 Note [facility] Pap Smear Specimen Adequacy October 22, 2022 3:15pm Comment . Satisfactory for evaluation. Endocervical and/or squamous metaplasticcells (endocervical component) are present. Comment on above: Satisfactory for irma luation. Endocervical and/or squamous metaplasticcells (endocervical component) are present. Clinical Note 10-22-2022 Note Date & Type Note Facility 10-22-2022 Note [facility] Pap Smear Specimen Adequacy October 22, 2022 2:15pm Comment . Satisfactory for evaluation. Endocervical and/or squamous metaplasticcells (endocervical component) are present. Comment on above: Satisfactory for irma luation. Endocervical and/or squamous metaplasticcells (endocervical component) are present. Evaluation note Note Date & Type Note Facility Evaluation note No assessment information availa ble [facility] Work Phone: Evaluation note Note Date & Type Note Facility Evaluation note Diagnosis Onset Date Tachycardia acute Hypertension chronic Psoriatic arthritis [facility] Work Phone: Evaluation note Note Date & Type Note Facility Evaluation note Diagnosis Onset Date Tachycardia acute Hypertension chronic Psoriatic arthritis chronic Palpitations acute Tachycardia acute Hypertension [facility] Work Phone: Hospital Discharge instructions Note Date & Type Note Facility Hospital Discharge instructions Ambulatory OrdersElectrophysiology Location: None [facility] Work Phone: Summary Purpose Family History No Family History Records Found Relationship Condition Age at Onset Recorded Date/T misael father Idiopathic myelofibrosis Unknown mother Disorder of thyroid Unknown Malignant neoplasm of colon Unknown grandmother Arthritis Unknown Advance Directives No Advanced Directives Records FoundNo Advanced Directives Records Found Chief Complaint and Reason for Visit Chief Complaint HTN (MICHAEL) Reason for Visit Tachycardia Hypertension Psoriatic arthritis Chief Complaint HTN (MICHAEL) R00.0 R00.2 I10 Reason for Visit Tachycardia Hypertension Psoriatic arthritis Chief Complaint HTN (MICHAEL) R00.0 R00.2 I10 3 M FU (PT SWITCHING FROM AR) Reason for Visit Tachycardia Hypertension Psoriatic arthritis Palpitations Tachycardia Hypertension Chief Complaint Admit Date 3-6 M FU November 08, 2024 11: 12am Reason for Visit Admit Date Hypertension November 08, 2024 11: 12am Palpitations November 08, 2024 11: 12am Psoriatic arthritis November 08, 2024 11: 12am Tachycardia November 08, 2024 11: 12am Additional Source Comments INFORMATION SOURCE (unrecogn ized section and content) DATE CREATED AUTHOR 07/26/2021 [facility] DATE CREATED AUTHOR AUTHOR'S ORGANIZ ATION 01/12/2025 [facility] Care Teams (unrecognized sec tion and content) Team Status: Active Member Role Status Dates Dr. Osito rAroyo MD Family Provider Active Adina Guzmán DO Primary Care Provider Active Team Status: Inactive Member Role Status Dates Adina Guzmán , Primary Care Provider, Attending Provider Active Team Status: Inactive Member Role Status Dates Adina Guzmán DO Primary Care Provider, Referring Provider Active Dr. Nuzhat Jade MD Attending Provider Active Team Status: Inactive Member Role Status Dates Adina Guzmán , DO Primary Care Provider Active DENNIS JERRY MD Attending Provider, Referring Pro vider Active Team Status: Inactive Member Role Status Dates Adina Guzmán , Primary Care Provider Active Dr. Nuzhat Jade MD Attending Provider, Referring Pr ovider Active Team Status: Active Member Role Status Dates Adina Guzmán DO Primary Care Provider Active Dr. Nuzhat Jade MD Attending Provider Active Team Status: Inactive Member Role Status Dates Adina Guzmán DO Primary Care Provider, Referring Provider Active Dr. Kyle Cordova MD Attending Provider Active Commercial Credit Analyst Relationship Specialty Start Date End Date ArielleAdina KayceeDO [address] [address] PCP - General Family Medicine 10/28/22 Team Status: Active Member Role/Relationship Status Dates Dr. Osito Arroyo MD Family Provider Active No Primary Care Physician Primary Care Provider Active Team Status: Inactive Member Role/Relationship Status Dates No Primary Care Physician Primary Care Provider Active Start: November 08, 2024 End: November 08, 2024 No Primary Care Physician Referring Provider Active Start: November 08, 2024 End: November 08, 2024 Osito Mohamud NP, TOOL ROOM ATTENDANT-C Attending Provider Active S tart: November 08, 2024 End: November 08, 2024 Goals (unrecognized section and content) Goals may be documented in a n alternate sectionGoals may be documented in an alternate sectionGoals may be documented in an alternate sectionGoals may be documented in an alternate sectionGoals may be documented in an alternate sectionGoals may be documented in an alternate section Source Comments (unrecognize d section and content) In the event this informatio n is protected by the Federal Confidentiality of Alcohol and Drug Abuse Patient Records regulations: The Federal rules restrict any use of the information to criminally investigate or prosecute any alcohol or drug abuse patient.[facility] Reason for Visit (unrecogniz ed section and content) Reason Comments Opened In Error FOR RECORDS PERTAINING TO PATIENTS WHO ARE [...] BE BASED ON THE PRIMARY CLINICAL RECORDS. [facility] [facility]. provides no warranty or guarantee of the accuracy or completeness of information in this document.
--- OUTSIDE RECORDS SUMMARY | 2025-01-24 06:28 | XMS RPT_ITS | CCD ---
Author Organization [facility] Care Team Providers Care Mold Cleaner Name Role Phone NOLBERTO LEAL Attending LOLIS Hagen Referring Unavailable DO Adina Guzmán Primary Care Provider [phone] DO Adina Guzmán Referring Provider [phone] Nuzhat Jade Attending Provider DO Adina Guzmán Primary Care Provider [phone] DO Adina Guzmán Referring Provider [phone] Nuzhat Jade Attending Provider Dr. Kyle Cordova Attending Provider [phone] Adina Guzmán DO Primary Care Provider [phone] Care Physician, No Primary Primary Care Provider Unavailable Care Physician, No Primary Referring Provider Un available Roof FERN-Osito Caal Attending Provider Care Physician, No Primary Primary Care Unava ilable Roof INDUSTRIAL ACCOUNTANT, Osito De La Torre Referring Unavailable Roof INDUSTRIAL ACCOUNTANT, Osito De La Torre Attending Unavailable Care Physician, No Primary Primary Care Unava ilable Roof INDUSTRIAL ACCOUNTANT, Osito De La Torre Referring Unavailable Roof INDUSTRIAL ACCOUNTANT, Osito De La Torre Attending Unavailable Care Physician, No Primary Referring Unava ilable Care Physician, No Primary Primary Care Unava ilable Roof INDUSTRIAL ACCOUNTANT, Osito De La Torre Attending Unavailable Roof INDUSTRIAL ACCOUNTANT, Osito De La Torre Attending Unavailable Care Physician, No Primary Referring Unava ilable Care Physician, No Primary Primary Care Unava ilable Allergies Allergy Classification Reported Allergen(s) Allergy Type Date of Onset Reaction(s) Facility (5 sources) Azithromycin Drug Allergy 10-10-19 09 unknown [facility] (5 sources) cefprozil Drug Allergy 10-10-19 09 Rash [facility] (4 sources) Hydroxychloroquine Drug Allergy 01-21-20 23 unknown [facility] (2 sources) amLODIPine Drug Allergy 05-03-19 24 Marked swelling in hands [facility] (1 source) certolizumab pegol Drug Allergy 01-14-20 19 Rash [facility] (1 source) Dust Propensity to adverse reactions 10-10-19 09 [facility] (1 source) guselkumab Drug Allergy 01-14-20 Rash [facility] (1 source) Hydroxychloroquine Drug Allergy 10-10-19 09 [facility] (1 source) secukinumab Drug Allergy 01-14-20 19 Rash [facility] (1 source) Homeopathic Products Propensity to adverse reactions 10-10-19 09 [facility] (1 source) Ragweed Propensity to adverse reactions 10-10-19 09 [facility] (1 source) Atenolol Drug Allergy 11-09-19 25 Severe diarrhea [facility] (1 source) carvedilol Drug Allergy 11-09-19 25 Nausea [facility] (1 source) dilTIAZem Drug Allergy 11-09-19 25 Hair Loss, knuckles swelling [facility] (1 source) Metoprolol Drug Allergy 11-09-19 25 Joint swelling [facility] (1 source) amLODIPine Drug Allergy 11-09-19 25 [facility] (1 source) Atenolol Drug Allergy 11-09-19 25 [facility] (1 source) Azithromycin Drug Allergy 11-09-19 25 [facility] (1 source) carvedilol Drug Allergy 11-09-19 25 [facility] (1 source) cefprozil Drug Allergy 11-09-19 25 [facility] (1 source) dilTIAZem Drug Allergy 11-09-19 25 [facility] (1 source) Hydroxychloroquine Drug Allergy 11-09-19 25 [facility] (1 source) Metoprolol Drug Allergy 11-09-19 25 [facility] Medications Current Medications Medication Drug Class(es) [...] 15, 2024 10:28am CLARIFY DOSE WITH PATIENT, Dredge Or Barge Shore Hand ordered Start: 05-24-2023 End: 06-15-2024 Secukinumab (Cosentyx) 75 mg /0.5 mL syringe Discontinued 150 mg SC every 4 weeks May 24, 2023 1:00am June 15, 2024 10:29am CLARIFY DOSE WITH PATIENT, Dredge Or Barge Shore Hand ordered Completed/Discontinued Medications Medication Drug Class(es) Dates [...] Facility Cardiology Visit Reporton Cardiology Visit Report [facility] 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 Normal [facility] 12 Lead [place] [facility]2024 12 Lead EKG performed by [facility] [address] [place] [address] 12 Lead E[place] [facility] 06/15/24 1032 MR#: [id number] Acct: [id number] Name: LEONEL EDGE Rep #: [id number] : 1960 63 From: Osito PACHECO Attending Dr: JUNIOR Fagan Status: DEP AMB Ordering Dr: Osito Mohamud NP Date: 06/15/24 [place] [facility] [place] Sex: F C Admitted: BMS/12 Lead [place] [facility] Report Interpretation -----Sinus Tachycardia -Nonspecific ST depression. ABNORMAL Electronically signed on 06/15/2024 at 11:42 by Josh [employer] Version [id number] 06/15/24 1143 Date Osito PACHECO CC: No Primary Care Physician Date Dictated: 06/15/24 1032 Date Transcribed: 06/15/24 1032 Expense Clerk: JEFERSON Signed Normal [facility] Cardiology Visit Reporton Cardiology Visit Report [facility] [address] [place] [address]. [address] [place] [address] OFFICE VISIT Date of Service: 06/15/24 MR#: [id number] Acct: [id number] Name: LEONEL EDGE Rep #: [id number] : 1960 Provider: JUNIOR diaz Age/Sex: 63/F [place] [facility] [place]: Signed HPI HPI History of Present [...] 06/15/24 History subcutaneous syringe (Cosentyx) WITH PATIENT, Dredge [employer] [place] Hand ordered [facility] Medical History Psoriasis Anxiety Hypertension Plantar [...] inspection: no (more content not included)... Normal [facility] Absolute lymphocyte countOrd ered By: DENNIS JERRY on 05-03-2023 Lymphocytes Auto (Unsp spec) [#/Vol] 2.06 10*3/uL 0.83-4.51 [facility] Automated lymphocyte count a s percentage of total leukocytesOrdered By: DENNIS JERRY on 05-03-2023 Lymphocytes/100 WBC Auto (Unsp spec) 22.6 % 19-41 [facility] Basophil percentageOrdered B y: DENNIS JERRY on 05-03-2023 Basophils/100 WBC (Bld) 1.5 % 0-1 [facility] Bilirubin [Mass/Vol] 0.50 mg/dL 0.20-1.00 [facility] Comment on above: For patients on eltr ombopag therapy, use of Dimension Riesel TBIL is not recommended. Eosinophils/100 WBC (Bld) 1.4 % 0-5 [facility] Hemoglobin (Bld) [Mass/Vol] 12.7 g/dL 12.0-15.0 [facility] Monocytes/100 WBC (Bld) 18.0 % 0-10 [facility] Neutrophils (Bld) [#/Vol] 4.9 10*3/uL 2.0-7.7 [facility] Neutrophils/100 WBC (Bld) 53.8 % 47-70 [facility] Protein [Mass/Vol] 8.0 g/dL 6.4-8.2 [facility] WBC (Bld) [#/Vol] 9.1 10*3/uL 4.4-11.0 [facility] Blood manual differential co mment interpretation (narrative result)Ordered By: DENNIS JERRY on 05-03-2023 Manual differential comment Noam (Bld) [Interp] SCANNED [facility] Determination of erythrocyte mean corpuscular volume (MCV)Ordered By: DENNIS JERRY on 05-03-2023 MCV (RBC) [Entitic vol] 86.9 fL 81-99 [facility] Direct bilirubinOrdered By: DENNIS JERRY on 05-03-2023 Bilirubin.direct [Mass/Vol] 0.14 mg/dL 0.00-0.30 [facility] Erythrocyte distribution wid th ratioOrdered By: DENNIS JERRY on 05-03-2023 Erythrocyte distribution width (RBC) [Ratio] 13.5 % 11.6-14.6 [facility] Erythrocyte distribution wid th standard deviationOrdered By: DENNIS JERRY on 05-03-2023 Erythrocyte distribution width (RBC) [Entitic vol] 43.0 fL 35.1-43.9 [facility] Erythrocyte sedimentation ra teOrdered By: DENNIS JERRY on 05-03-2023 ESR (Bld) [Velocity] 116 mm/h 0-30 [facility] Hematocrit Auto (Bld) [Volum e fraction]Ordered By: DENNIS JERRY on 05-03-2023 Hematocrit (Bld) [Volume fraction] 41.2 % 37-47 [facility] Immature granulocytes/100 WB C Auto (Bld)Ordered By: DENNIS JERRY on 05-03-2023 Immature granulocytes/100 WBC (Bld) 2.700 % 0.0-0.9 [facility] Comment on above: IG% - Immature Granu locytes (promyelocytes, myelocytes and metamyelocytes) > 1% indicates that a LEFT SHIFT is Present. Laboratory - Chemistry and C hemistry - challengeOrdered By: DENNIS JERRY on 05-03-2023 ALP [Catalytic activity/Vol] 79 U/L 45-117 [facility] ALT [Catalytic activity/Vol] 28 U/L 13-56 [facility] Globulin (S) [Mass/Vol] 5.0 g/dL 2.2-4.2 [facility] Laboratory - Hematology and Cell countsOrdered By: DENNIS JERRY on 05-03-2023 MCH (RBC) [Entitic mass] 26.8 pg 27.0-32.0 [facility] MCHC (RBC) [Mass/Vol] 30.8 g/dL 32-36 [facility] Nucleated RBC/100 WBC (Bld) [Ratio] 0 % 0-5 [facility] Platelets (Bld) [#/Vol] 594 10*3/uL 150-450 [facility] No Panel InformationOrdered By: DENNIS JERRY on 05-03-2023 C-Reactive Protein Extended Range 75.60 mg/L 0.0-3.0 [facility] Comment on above: C-Reactive Protein ( CRP) provides useful information for thediagnosis, therapy and monitoring of inflammatory processesand associated diseases. For the evaluation of Relative Riskfor Cardiovascular Disease, a High Sensitivity CRP (HSCRP)should be ordered. Estimated GFR (MDRD) Amer 78 mL/min >60 [facility] Comment on above: GFR Calc Estimated GFR (MDRD) Non-Af Amer 64 mL/min >60 [facility] Comment on above: Non- GFR Calc Platelet mean volume Negrito-Ec ker (Bld) [Entitic vol]Ordered By: DENNIS JERRY on 05-03-2023 Platelet mean volume (Bld) [Entitic vol] 10.1 fL 6.2-12.0 [facility] RBC Auto (Bld) [#/Vol]Ordere d By: DENNIS JERRY on 05-03-2023 RBC (Bld) [#/Vol] 4.74 10*6/uL 4.2-5.4 [facility] Serum or plasma creatinine m easurement (mass/volume)Ordered By: DENNIS JERRY on 05-03-2023 Creatinine [Mass/Vol] 0.94 mg/dL 0.55-1.02 [facility] Comment on above: The validity of the calculated GFR & GFRAA in patients over 70 years has not been determined. Clinical correlation is essential. Thin prep Papanicolaou smear with manual screeningOrdered By: DENNIS JERRY on 05-03-2023 Thin prep Papanicolaou smear with manual screening 3.0 g/dL 3.2-5.0 [facility] Thin prep Papanicolaou smear with manual screening 37 U/L 15-37 [facility] Comment on above: Slight Hemolysis, Re sult may be falsely increased. Absolute lymphocyte countOrd ered By: DENNIS JERRY on 03-10-2023 Lymphocytes Auto (Unsp spec) [#/Vol] 1.41 10*3/uL 0.83-4.51 [facility] Basophil percentageOrdered B y: DENNIS JERRY on 03-10-2023 Basophils/100 WBC (Bld) 1.0 % 0-1 [facility] Bilirubin [Mass/Vol] 0.50 mg/dL 0.20-1.00 [facility] Comment on above: For patients on eltr ombopag therapy, use of Dimension Riesel TBIL is not recommended. Eosinophils/100 WBC (Bld) 0.3 % 0-5 [facility] Neutrophils (Bld) [#/Vol] 7.5 10*3/uL 2.0-7.7 [facility] Neutrophils/100 WBC (Bld) 73.6 % 47-70 [facility] Protein [Mass/Vol] 8.5 g/dL 6.4-8.2 [facility] WBC (Bld) [#/Vol] 10.2 10*3/uL 4.4-11.0 [facility] Blood erythrocytes count (nu mber/volume)Ordered By: DENNIS JERRY on 03-10-2023 RBC (Bld) [#/Vol] 5.02 10*6/uL 4.2-5.4 [facility] Blood hemoglobin measurement (mass/volume)Ordered By: DENNIS JERRY on 03-10-2023 Hemoglobin (Bld) [Mass/Vol] 13.7 g/dL 12.0-15.0 [facility] Blood lymphocytes/100 leukoc ytesOrdered By: DENNIS JERRY on 03-10-2023 Lymphocytes/100 WBC (Bld) 13.9 % 19-41 [facility] Blood monocytes/100 leukocyt esOrdered By: DENNIS JERRY on 03-10-2023 Monocytes/100 WBC (Bld) 10.9 % 0-10 [facility] Blood platelet mean volumeOr dered By: DENNIS JERRY on 03-10-2023 Platelet mean volume (Bld) [Entitic vol] 9.9 fL 6.2-12.0 [facility] Determination of erythrocyte mean corpuscular volume (MCV)Ordered By: DENNIS JERRY on 03-10-2023 MCV (RBC) [Entitic vol] 87.5 fL 81-99 [facility] Direct bilirubinOrdered By: DENNIS JERRY on 03-10-2023 Bilirubin.direct [Mass/Vol] 0.11 mg/dL 0.00-0.30 [facility] Erythrocyte sedimentation ra teOrdered By: DENNIS JERRY on 03-10-2023 ESR (Bld) [Velocity] 92 mm/h 0-30 [facility] Hematocrit Auto (Bld) [Volum e fraction]Ordered By: DENNIS JERRY on 03-10-2023 Hematocrit (Bld) [Volume fraction] 43.9 % 37-47 [facility] Laboratory - Chemistry and C hemistry - challengeOrdered By: DENNIS JERRY on 03-10-2023 ALP [Catalytic activity/Vol] 86 U/L 45-117 [facility] ALT [Catalytic activity/Vol] 30 U/L 13-56 [facility] Globulin (S) [Mass/Vol] 5.0 g/dL 2.2-4.2 [facility] Laboratory - Hematology and Cell countsOrdered By: DENNIS JERRY on 03-10-2023 Erythrocyte distribution width (RBC) [Entitic vol] 46.7 fL 35.1-43.9 [facility] Erythrocyte distribution width (RBC) [Ratio] 14.7 % 11.6-14.6 [facility] Immature granulocytes/100 WBC (Bld) 0.300 % 0.0-0.9 [facility] Comment on above: IG% - Immature Granu locytes (promyelocytes, myelocytes and metamyelocytes) > 1% indicates that a LEFT SHIFT is Present. MCH (RBC) [Entitic mass] 27.3 pg 27.0-32.0 [facility] Nucleated RBC/100 WBC (Bld) [Ratio] 0 % 0-5 [facility] MCHC Auto (RBC) [Mass/Vol]Or dered By: DENNIS JERRY on 03-10-2023 MCHC (RBC) [Mass/Vol] 31.2 g/dL 32-36 [facility] No Panel InformationOrdered By: DENNIS JERRY on 03-10-2023 Estimated GFR (MDRD) Amer 71 mL/min >60 [facility] Comment on above: GFR Calc Estimated GFR (MDRD) Non-Af Amer 59 mL/min >60 [facility] Comment on above: Non- GFR Calc Platelets bldOrdered By: SHILPI JERRY on 03-10-2023 Platelets (Bld) [#/Vol] 502 10*3/uL 150-450 [facility] Serum or plasma C reactive p rotein measurement (mass/volume)Ordered By: DENNIS JERRY on 03-10-2023 CRP [Mass/Vol] 47.80 mg/L 0.0-3.0 [facility] Comment on above: C-Reactive Protein ( CRP) provides useful information for thediagnosis, therapy and monitoring of inflammatory processesand associated diseases. For the evaluation of Relative Riskfor Cardiovascular Disease, a High Sensitivity CRP (HSCRP)should be ordered. Serum or plasma albumin leslie urement (mass/volume)Ordered By: DENNIS JERRY on 03-10-2023 Albumin [Mass/Vol] 3.5 g/dL 3.2-5.0 [facility] Serum or plasma creatinine m easurement (mass/volume)Ordered By: DENNIS JERRY on 03-10-2023 Creatinine [Mass/Vol] 1.01 mg/dL 0.55-1.02 [facility] Comment on above: The validity of the calculated GFR & GFRAA in patients over 70 years has not been determined. Clinical correlation is essential. Thin prep Papanicolaou smear with manual screeningOrdered By: DENNIS JERRY on 03-10-2023 Thin prep Papanicolaou smear with manual screening 39 U/L 15-37 [facility] Basophil percentageOrdered B y: Nuzhat Jade on 01-29-2023 Bilirubin [Mass/Vol] 0.50 mg/dL 0.20-1.00 [facility] Comment on above: For patients on eltr ombopag therapy, use of Dimension Riesel TBIL is not recommended. Chloride [Moles/Vol] 103 mmol/L 98-107 [facility] Glucose [Mass/Vol] 210 mg/dL 74-106 [facility] Comment on above: Glucose result great er than or equal to 200 mg/dLsuggests DIABETES MELLITUS per A.D.A. criteria. Potassium [Moles/Vol] 3.9 mmol/L 3.5-5.1 [facility] Protein [Mass/Vol] 8.2 g/dL 6.4-8.2 [facility] Sodium [Moles/Vol] 136 mmol/L 136-145 [facility] Laboratory - Chemistry and C hemistry - challengeOrdered By: Nuzhat Jade on 01-29-2023 ALP [Catalytic activity/Vol] 86 U/L 45-117 [facility] ALT [Catalytic activity/Vol] 37 U/L 13-56 [facility] CO2 [Moles/Vol] 24.0 mmol/L 21.0-32.0 [facility] Globulin (S) [Mass/Vol] 5.2 g/dL 2.2-4.2 [facility] Urea nitrogen/Creatinine [Mass ratio] 9.6 mg/mg 10-20 [facility] No Panel InformationOrdered By: Nuzhat Jade on 01-29-2023 Estimated GFR (MDRD) Amer 62 mL/min >60 [facility] Comment on above: GFR Calc Estimated GFR (MDRD) Non-Af Amer 51 mL/min >60 [facility] Comment on above: Non- GFR Calc Thyroid Stimulating Hormone (TSH) 2.78 uIU/mL 0.358-3.74 [facility] Serum or plasma albumin leslie urement (mass/volume)Ordered By: Nuzhatkira Jade on 01-29-2023 Albumin [Mass/Vol] 3.0 g/dL 3.2-5.0 [facility] Serum or plasma albumin/glob ulin mass ratioOrdered By: Nuzhatkira Jade on 01-29-2023 Albumin/Globulin [Mass ratio] 0.6 {ratio} 0.9-2.4 [facility] Serum or plasma calcium leslie urement (mass/volume)Ordered By: Nuzhat Jade on 01-29-2023 Calcium [Mass/Vol] 8.9 mg/dL 8.5-10.1 [facility] Serum or plasma creatinine m easurement (mass/volume)Ordered By: Nuzhat Jade on 01-29-2023 Creatinine [Mass/Vol] 1.14 mg/dL 0.55-1.02 [facility] Comment on above: The validity of the calculated GFR & GFRAA in patients over 70 years has not been determined. Clinical correlation is essential. Serum or plasma urea nitroge n measurement (mass/volume)Ordered By: Nuzhat Jade on 01-29-2023 Urea nitrogen [Mass/Vol] 11 mg/dL 7-18 [facility] Thin prep Papanicolaou smear with manual screeningOrdered By: Nuzhat Jade on 01-29-2023 Thin prep Papanicolaou smear with manual screening 42 U/L 15-37 [facility] Thin prep Papanicolaou smear with manual screening 9 5-15 [facility] Absolute lymphocyte countOrd ered By: DENNIS JERRY on 01-06-2023 Lymphocytes Auto (Unsp spec) [#/Vol] 2.19 10*3/uL 0.83-4.51 [facility] Basophil percentageOrdered B y: DENNIS JERRY on 01-06-2023 Basophils/100 WBC (Bld) 1.2 % 0-1 [facility] Bilirubin [Mass/Vol] 0.50 mg/dL 0.20-1.00 [facility] Comment on above: For patients on eltr ombopag therapy, use of Dimension Riesel TBIL is not recommended. Eosinophils/100 WBC (Bld) 2.5 % 0-5 [facility] Neutrophils (Bld) [#/Vol] 4.8 10*3/uL 2.0-7.7 [facility] Neutrophils/100 WBC (Bld) 57.7 % 47-70 [facility] Protein [Mass/Vol] 8.7 g/dL 6.4-8.2 [facility] WBC (Bld) [#/Vol] 8.3 10*3/uL 4.4-11.0 [facility] Blood erythrocytes count (nu mber/volume)Ordered By: DENNIS JERRY on 01-06-2023 RBC (Bld) [#/Vol] 4.64 10*6/uL 4.2-5.4 [facility] Blood hemoglobin measurement (mass/volume)Ordered By: DENNIS JERRY on 01-06-2023 Hemoglobin (Bld) [Mass/Vol] 13.2 g/dL 12.0-15.0 [facility] Blood lymphocytes/100 leukoc ytesOrdered By: DENNIS JERRY on 01-06-2023 Lymphocytes/100 WBC (Bld) 26.5 % 19-41 [facility] Blood manual differential co mment interpretation (narrative result)Ordered By: DENNIS JERRY on 01-06-2023 Manual differential comment Noam (Bld) [Interp] SCANNED [facility] Blood monocytes/100 leukocyt esOrdered By: DENNIS JERRY on 01-06-2023 Monocytes/100 WBC (Bld) 11.6 % 0-10 [facility] Blood platelet mean volumeOr dered By: DENNIS JERRY on 01-06-2023 Platelet mean volume (Bld) [Entitic vol] 10.5 fL 6.2-12.0 [facility] Determination of erythrocyte mean corpuscular volume (MCV)Ordered By: DENNIS JERRY on 01-06-2023 MCV (RBC) [Entitic vol] 89.4 fL 81-99 [facility] Direct bilirubinOrdered By: DENNIS JERRY on 01-06-2023 Bilirubin.direct [Mass/Vol] 0.12 mg/dL 0.00-0.30 [facility] Hematocrit Auto (Bld) [Volum e fraction]Ordered By: DENNIS JERRY on 01-06-2023 Hematocrit (Bld) [Volume fraction] 41.5 % 37-47 [facility] Laboratory - Chemistry and C hemistry - challengeOrdered By: DENNIS JERRY on 01-06-2023 ALP [Catalytic activity/Vol] 81 U/L 45-117 [facility] ALT [Catalytic activity/Vol] 23 U/L 13-56 [facility] Globulin (S) [Mass/Vol] 5.6 g/dL 2.2-4.2 [facility] Laboratory - Hematology and Cell countsOrdered By: DENNIS JERRY on 01-06-2023 Erythrocyte distribution width (RBC) [Entitic vol] 41.3 fL 35.1-43.9 [facility] Erythrocyte distribution width (RBC) [Ratio] 12.7 % 11.6-14.6 [facility] Immature granulocytes/100 WBC (Bld) 0.500 % 0.0-0.9 [facility] Comment on above: IG% - Immature Granu locytes (promyelocytes, myelocytes and metamyelocytes) > 1% indicates that a LEFT SHIFT is Present. MCH (RBC) [Entitic mass] 28.4 pg 27.0-32.0 [facility] Nucleated RBC/100 WBC (Bld) [Ratio] 0 % 0-5 [facility] MCHC Auto (RBC) [Mass/Vol]Or dered By: DENNIS JERRY on 01-06-2023 MCHC (RBC) [Mass/Vol] 31.8 g/dL 32-36 [facility] No Panel InformationOrdered By: DENNIS JERRY on 01-06-2023 Estimated GFR (MDRD) Amer 68 mL/min >60 [facility] Comment on above: GFR Calc Estimated GFR (MDRD) Non-Af Amer 56 mL/min >60 [facility] Comment on above: Non- GFR Calc Platelets bldOrdered By: SHILPI JERRY on 01-06-2023 Platelets (Bld) [#/Vol] 506 10*3/uL 150-450 [facility] Serum or plasma albumin leslie urement (mass/volume)Ordered By: DENNIS JERRY on 01-06-2023 Albumin [Mass/Vol] 3.1 g/dL 3.2-5.0 [facility] Serum or plasma creatinine m easurement (mass/volume)Ordered By: DENNIS JERRY on 01-06-2023 Creatinine [Mass/Vol] 1.06 mg/dL 0.55-1.02 [facility] Comment on above: The validity of the calculated GFR & GFRAA in patients over 70 years has not been determined. Clinical correlation is essential. Thin prep Papanicolaou smear with manual screeningOrdered By: DENNIS JERRY on 01-06-2023 Thin prep Papanicolaou smear with manual screening 26 U/L 15-37 [facility] Cervical or vagninal specime n microscopic examination by cytology stain (reported asOrdered By: Adina Guzmán on 10-22-2022 Cytology report Cyto stain Doc (Cvx/Vag) Comment . [facility] Comment on above: The Pap smear is [...] +52+56+58+59+68 DNA Probe+sig amp Ql (Cvx) Negative [facility] Laboratory - CytologyOrdered By: Adina Guzmán on 10-22-2022 Technical Publications Writer Cyto stain Nom (Cvx/Vag) [ID] Comment . [facility] Comment on above: Arthur Becker totechnologist (ASCP) Laboratory - Miscellaneous t estsOrdered By: Adina Guzmán on 10-22-2022 Service comment (Unsp spec) [Interp] Comment . [facility] Comment on above: This liquid based Th inPrep(R) pap test was screened withthe use of an image guided system. Service comment (Unsp spec) [Interp] . . [facility] No Panel InformationOrdered By: Adina Guzmán on 10-22-2022 Pathology report final diagnosis Narrative Comment . [facility] Comment on above: NEGATIVE FOR INTRAEP ITHELIAL LESION OR MALIGNANCY. Absolute lymphocyte countOrd ered By: Adina Guzmán on 08-06-2022 Lymphocytes Auto (Unsp spec) [#/Vol] 1.22 10*3/uL 0.83-4.51 [facility] Basophil percentageOrdered B y: Adina Guzmán on 08-06-2022 Basophils/100 WBC (Bld) 0.9 % 0-1 [facility] Bilirubin [Mass/Vol] 0.40 mg/dL 0.20-1.00 [facility] Comment on above: For patients on eltr ombopag therapy, use of Dimension Riesel TBIL is not recommended. Chloride [Moles/Vol] 105 mmol/L 98-107 [facility] Cholesterol [Mass/Vol] 215 mg/dL <200 [facility] Comment on above: <200 mg/dL Desirable 200-240 mg/dL Borderline >240 mg/dL High Risk Eosinophils/100 WBC (Bld) 0.4 % 0-5 [facility] Glucose [Mass/Vol] 112 mg/dL 74-106 [facility] Comment on above: Fasting Glucose resu lt from 100 to 125 mg/dL suggests IMPAIRED HOMEOSTASIS per A.D.A. criteria. Neutrophils (Bld) [#/Vol] 5.6 10*3/uL 2.0-7.7 [facility] Neutrophils/100 WBC (Bld) 74.4 % 47-70 [facility] Potassium [Moles/Vol] 4.1 mmol/L 3.5-5.1 [facility] Protein [Mass/Vol] 8.5 g/dL 6.4-8.2 [facility] Sodium [Moles/Vol] 139 mmol/L 136-145 [facility] Triglyceride [Mass/Vol] 115 mg/dL <199 [facility] Comment on above: The drugs N-Acetylcy steine and Metamizole may falsely depress this assay.Serum Triglycerides Reference Interval Normal <150 mg/dL Borderline high 150 - 199 mg/dL High 200 - 499 mg/dL Very High > or = 500 mg/dL WBC (Bld) [#/Vol] 7.5 10*3/uL 4.4-11.0 [facility] Blood erythrocytes count (nu mber/volume)Ordered By: Adina Guzmán on 08-06-2022 RBC (Bld) [#/Vol] 4.84 10*6/uL 4.2-5.4 [facility] Blood hemoglobin measurement (mass/volume)Ordered By: Adina Guzmán on 08-06-2022 Hemoglobin (Bld) [Mass/Vol] 14.2 g/dL 12.0-15.0 [facility] Blood lymphocytes/100 leukoc ytesOrdered By: Adina Guzmán on 08-06-2022 Lymphocytes/100 WBC (Bld) 16.4 % 19-41 [facility] Blood monocytes/100 leukocyt esOrdered By: Adina Guzmán on 08-06-2022 Monocytes/100 WBC (Bld) 7.8 % 0-10 [facility] Blood platelet mean volumeOr dered By: Adina Guzmán on 08-06-2022 Platelet mean volume (Bld) [Entitic vol] 10.4 fL 6.2-12.0 [facility] Determination of erythrocyte mean corpuscular volume (MCV)Ordered By: Adina Guzmán on 08-06-2022 MCV (RBC) [Entitic vol] 91.3 fL 81-99 [facility] Hematocrit Auto (Bld) [Volum e fraction]Ordered By: Adina Guzmán on 08-06-2022 Hematocrit (Bld) [Volume fraction] 44.2 % 37-47 [facility] Laboratory - Chemistry and C hemistry - challengeOrdered By: Adina Guzmán on 08-06-2022 ALP [Catalytic activity/Vol] 90 U/L 45-117 [facility] ALT [Catalytic activity/Vol] 25 U/L 13-56 [facility] CO2 [Moles/Vol] 24.0 mmol/L 21.0-32.0 [facility] Globulin (S) [Mass/Vol] 4.8 g/dL 2.2-4.2 [facility] Urea nitrogen/Creatinine [Mass ratio] 15.6 mg/mg 10-20 [facility] Laboratory - Hematology and Cell countsOrdered By: Adina Guzmán on 08-06-2022 Erythrocyte distribution width (RBC) [Entitic vol] 43.5 fL 35.1-43.9 [facility] Erythrocyte distribution width (RBC) [Ratio] 13.1 % 11.6-14.6 [facility] Immature granulocytes/100 WBC (Bld) 0.100 % 0.0-0.9 [facility] Comment on above: IG% - Immature Granu locytes (promyelocytes, myelocytes and metamyelocytes) > 1% indicates that a LEFT SHIFT is Present. MCH (RBC) [Entitic mass] 29.3 pg 27.0-32.0 [facility] Nucleated RBC/100 WBC (Bld) [Ratio] 0 % 0-5 [facility] MCHC Auto (RBC) [Mass/Vol]Or dered By: Adina Guzmán on 08-06-2022 MCHC (RBC) [Mass/Vol] 32.1 g/dL 32-36 [facility] No Panel InformationOrdered By: Adina Guzmán on 08-06-2022 Estimated GFR (MDRD) Amer 76 mL/min >60 [facility] Comment on above: GFR Calc Estimated GFR (MDRD) Non-Af Amer 63 mL/min >60 [facility] Comment on above: Non- GFR Calc Thyroid Stimulating Hormone (TSH) 3.29 uIU/mL 0.358-3.74 [facility] Platelets bldOrdered By: Deonte nugentjia Arielle on 08-06-2022 Platelets (Bld) [#/Vol] 389 10*3/uL 150-450 [facility] Serum or plasma albumin leslie urement (mass/volume)Ordered By: Adina Guzmán on 08-06-2022 Albumin [Mass/Vol] 3.7 g/dL 3.2-5.0 [facility] Serum or plasma albumin/glob ulin mass ratioOrdered By: Adina Guzmán on 08-06-2022 Albumin/Globulin [Mass ratio] 0.8 {ratio} 0.9-2.4 [facility] Serum or plasma calcium leslie urement (mass/volume)Ordered By: Adina Guzmán on 08-06-2022 Calcium [Mass/Vol] 9.5 mg/dL 8.5-10.1 [facility] Serum or plasma cholesterol in HDL measurement (mass/volume)Ordered By: Adina Guzmán on 08-06-2022 Cholesterol in HDL [Mass/Vol] 44 mg/dL >40 [facility] Comment on above: The drugs N-Acetylcy steine and Metamizole may falsely depress this assay. Reference Range HDL <40 mg/dL Low HDL Cholesterol HDL >or= 60 mg/dL High HDL Cholesterol Serum or plasma cholesterol in VLDL measurement (mass/volume)Ordered By: Adina Guzmán on 08-06-2022 Cholesterol in VLDL [Mass/Vol] 23 mg/dL 5-40 [facility] Serum or plasma creatinine m easurement (mass/volume)Ordered By: Adina Guzmán on 08-06-2022 Creatinine [Mass/Vol] 0.96 mg/dL 0.55-1.02 [facility] Comment on above: The validity of the calculated GFR & GFRAA in patients over 70 years has not been determined. Clinical correlation is essential. Serum or plasma low density lipoprotein (LDL) cholesterol measurement (mass/volume)Ordered By: Adina Guzmán on 08-06-2022 Cholesterol in LDL [Mass/Vol] 148 mg/dL 0-130 [facility] Serum or plasma urea nitroge n measurement (mass/volume)Ordered By: Adina Guzmán on 08-06-2022 Urea nitrogen [Mass/Vol] 15 mg/dL 7-18 [facility] Thin prep Papanicolaou smear with manual screeningOrdered By: Adina Guzmán on 08-06-2022 Thin prep Papanicolaou smear with manual screening 26 U/L 15-37 [facility] Thin prep Papanicolaou smear with manual screening 10 5-15 [facility] Whole blood hemoglobin A1c/t otal hemoglobin ratio (mass fraction)Ordered By: Adina Guzmán on 08-06-2022 HbA1c (Bld) [Mass fraction] 5.2 % 3.8-5.6 [facility] Comment on above: Normal < 5.7 % Predi abetic 5.7 - 6.4 % Diabetic >or= 6.5 % Please note range changes. Vital Signs Date Time Vital Sign Value Performing Clinician Aster blackburn 11-08-2024 11:42-0400 Diastolic blood pressure 82 mm[Hg] No Primary Care Physician [facility] 11-08-2024 11:42-0400 Heart rate 105 /min No Primary Care Physician [facility] 11-08-2024 11:42-0400 Respiratory rate 16 /min No Primary Care Physician [facility] 11-08-2024 11:42-0400 Systolic blood pressure 149 mm[Hg] No Primary Care Physician [facility] 11-08-2024 11:32-0400 Body height 165.1 cm No Primary Care Physician [facility] 11-08-2024 11:32-0400 Body mass index (BMI) [Ratio] 37 kg/m2 No Primary Care Physician [facility] 11-08-2024 11:32-0400 Body weight 101.15 kg No Primary Care Physician [facility] 05-03-2023 13:29-0500 Body height 165.1 cm DO Adina Guzmán Work Phone: [facility] 05-03-2023 13:29-0500 Body mass index (BMI) [Ratio] 34.4 kg/m2 DO Adina Guzmán Work Phone: [facility] 05-03-2023 13:29-0500 Body weight 93.89 kg DO Adina Guzmán Work Phone: [facility] 05-03-2023 13:29-0500 Diastolic blood pressure 92 mm[Hg] DO Adina Arielle Work Phone: [facility] 05-03-2023 13:29-0500 Heart rate 158 /min DO Adina Arielle Work Phone: [facility] 05-03-2023 13:29-0500 Respiratory rate 18 /min DO Adina Arielle Work Phone: [facility] 05-03-2023 13:29-0500 Systolic blood pressure 192 mm[Hg] DO Adina Arielle Work Phone: [facility] 01-20-2023 10:56-0400 Diastolic blood pressure 88 mm[Hg] DO Adina Arielle Work Phone: [facility] 01-20-2023 10:56-0400 Systolic blood pressure 165 mm[Hg] DO Adina Arielle Work Phone: [facility] 01-20-2023 10:43-0400 Body height 165.1 cm DO Adina Arielle Work Phone: [facility] 01-20-2023 10:43-0400 Body mass index (BMI) [Ratio] 35.4 kg/m2 DO Adina Arielle Work Phone: [facility] 01-20-2023 10:43-0400 Body weight 96.61 kg DO Adina Arielle Work Phone: [facility] 01-20-2023 10:43-0400 Heart rate 126 /min DO Adina Arielle Work Phone: [facility] 01-20-2023 10:43-0400 Respiratory rate 18 /min DO Adina Arielle Work Phone: [facility] Encounters Encounter Date Encounter Type Care Provider Facility Start: 01-24-2025 ambulatory No Primary Car e Physician Facility:[facility] Start: 11-28-2024 ambulatory No Primary Car e Physician Facility:[facility] Start: 11-08-2024 End: 11-08-2024 Patient encounter procedure Osito Mohamud INDUSTRIAL ACCOUNTANT-C -[facility] Work Phone: Start: 11-08-2024 End: 11-08-2024 ambulatory No Primary Care Physician -[facility] Start: 06-15-2024 End: 06-15-2024 ambulatory Osito Mohamud INDUSTRIAL ACCOUNTANT [place] Start: 06-28-2023 Telephone encounter Emiliana Weiner MD Work Phone: General Surgery Comment on above: Opened In Error Start: 05-03-2023 End: 05-03-2023 ambulatory DO Adina Pridenger Work Phone: [facility] Work Phone: Start: 05-03-2023 End: 05-03-2023 Patient encounter procedure DO Adina Guzmán Work Phone: [facility] Work Phone: Start: 03-10-2023 End: 03-10-2023 Patient encounter procedure DO Adina Guzmán Work Phone: [facility] Work Phone: Start: 02-16-2023 Non-patient / Non-visit DO Deonte nugentjia Arielle Work Phone: [facility] Start: 02-16-2023 End: 02-16-2023 ambulatory DO Adina Pridenger Work Phone: [facility] Work Phone: Start: 02-16-2023 End: 02-16-2023 Patient encounter procedure DO Adina Pridenger Work Phone: [facility] Work Phone: Start: 01-29-2023 End: 01-29-2023 ambulatory DO Adina Pridenger Work Phone: [facility] Work Phone: Start: 01-29-2023 End: 01-29-2023 Patient encounter procedure DO Adina Guzmán Work Phone: [facility] Work Phone: Start: 01-20-2023 End: 01-20-2023 Patient encounter procedure DO Adina Guzmán Work Phone: [facility] Work Phone: Start: 01-06-2023 End: 01-06-2023 Patient encounter procedure DO Adina Guzmán [facility] [place] Work Phone: Start: 10-22-2022 End: 10-22-2022 ambulatory [facility] Work Phone: Start: 10-22-2022 End: 10-22-2022 Patient encounter procedure [facility] Work Phone: Start: 08-06-2022 End: 08-06-2022 ambulatory [facility] Work Phone: Start: 08-06-2022 End: 08-06-2022 Patient encounter procedure [facility] Start: 06-27-2021 ambulatory [facility] Facility :[facility] Start[facility] 06-23-2021 [facility] Facility :[facility] Start: 04-24-2021 ambulatory [facility] Facility :[facility] Plan of Treatment Date Care Activity Detail Author Start: 04-05-2023 Depression Assessment Depression Ass essment [facility] Start: 12-04-2022 Covid-19 Vaccine ( season) Covid-19 Vaccine ( season) [facility] Start: 12-04-2022 Influenza vaccination Influenza Vacc ine (#1) [facility] Start: 2020 RSV Vaccine (1 - 1-d ose 60+ series) RSV Vaccine (1 - 1-dose 60+ series) [facility] Start: 2010 Shingrix Vaccine (1 of 2) Colon grix Vaccine (1 of 2) [facility] Start: 2005 Diabetes Screening Diabetes Screenin g [facility] Start: 2005 Lipid panel Lipid Screening [facility] Start: 2005 Screening for malign ant neoplasm of colon [facility] Start: 2000 Screening for malign ant neoplasm of breast Mammogram Screening [facility] Start: 1990 Screening for malign ant neoplasm of cervix HPV Testing [facility] Start: 1981 Screening for malign ant neoplasm of cervix Pap Testing [facility] Start: 11-18-1979 Urine microalbumin profile DTaP,Tdap,Td Vaccine (1 - Tdap) [facility] Start: 1978 Hepatitis C screening Hepatitis C Sc reening [facility] Start: 1978 HIV screening HIV Screening [facility] 24 Hour ECG [facility] 24 Hour ECG [facility] Evaluation of diagno stic study results [facility] Path report.final Dx Spec [facility] Radionuclide imaging of perfusion of myocardium under exercise stress [facility] Payers Date Payer Category Payer Self-pay [id number] 2024 Private Health Insurance [id number] 2016 Unknown MMO MMO [employer] PPO [id number] 2016-Present [phone] [address] [place] [address] PPO [id number] 2016 Unknown [id number] 1960 Unknown [id number] 1960 Unknown [id number] Unknown [id number] Unknown [id number] Unknown [id number] Unknown [id number] Social History Date Type Detail Facility Tobacco smoking stat us NHIS Unknown if ever smoked [facility] Work Phone: Start: 1960 Sex Assigned At Female [facility] Start: 01-20-2023 End: 05-03-2023 Tobacco smoking status NHIS Unknown if ever smoked [facility] Start: 01-13-2019 End: 05-03-2023 Tobacco smoking status NHIS Never smoked tobacco [facility] Start: 01-13-2019 Tobacco use and exposure Smokeless tobacco non-user [facility] Start: 01-13-2019 Alcohol intake Current drinke r of alcohol (finding) [facility] Start: 01-13-2019 End: 03-12-2020 History of Social function [facility] Start: 01-13-2019 End: 03-12-2020 Tobacco use panel [facility] National Score (1-100), lower number is lower risk Not on file [facility] Start: 06-07-2009 Alcohol Comment [facility] Start: 2022 Gender identity Identifies as female gender (finding) [facility] Evaluation note 11-08-2024 Note Date & Type Note Facility 11-08-2024 Evaluation note Diagnosis Onset Date Resolution Hypertension chronic November 08, 2024 11:12am Palpitations chronic November 08, 2024 11:12am Psoriatic arthritis chronic Augus t 2024 11:12am Tachycardia chronic November 08, 2 025 11:12am [facility] Work Phone: Progress note 11-08-2024 Note Date & Type Note Facility 11-08-2024 Progress note [facility] Progress note 11-08-2024 Note Date & Type Note Facility 11-08-2024 Progress note Note Date/Time November 08, 2024 12:49pm [facility] 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 Wellman is noted be 69 degrees. Twelve-lead ECG [...] recommendation be made. Her laboratory testing with truer pinion and wheel in August 2024 showed no significant abnormality. [...] outlined above. Will seek the opinion of line analyst with respect topossible etiology and additional workup that may be required versus ongoing medical therapy. (4) Psoriatic arthritis: Status: Chronic Plan: ESR on 08/2024 was noted be elevated at 87, which is improved compared to previous. Rheumatology office visit will be requested for continuity of care. Will await opinion from line analyst regarding further autoimmune workup that may be contributing to her tachycardia. Orders: Orders Echo Complete Today R00.0 - Tachycardia, unspecified, R00.2 - Palpitations Cardiac Holter Monitor, 24 Hrs Today R00.0 - Tachycardia, unspecified, R00.2 - Palpitations 12 Lead EKG performed by [facility] Today R00.0 - Tachycardia, unspecified, R00.2 - [...] as necessary. Follow Up: Rheumatology Office visit ([facility] [place]) 6 Months () Coding Level of Care [...] (if applicable) CC: Sakina Guzmán DO ~ [facility] Work Phone: Clinical Note 10-22-2022 Note Date & Type Note Facility 10-22-2022 Note [facility] Pap Smear Specimen Adequacy October 22, 2022 3:15pm Comment . Satisfactory for evaluation. Endocervical and/or squamous metaplasticcells (endocervical component) are present. Comment on above: Satisfactory for irma luation. Endocervical and/or squamous metaplasticcells (endocervical component) are present. Clinical Note 10-22-2022 Note Date & Type Note Facility 10-22-2022 Note [facility] Pap Smear Specimen Adequacy October 22, 2022 2:15pm Comment . Satisfactory for evaluation. Endocervical and/or squamous metaplasticcells (endocervical component) are present. Comment on above: Satisfactory for irma luation. Endocervical and/or squamous metaplasticcells (endocervical component) are present. Evaluation note Note Date & Type Note Facility Evaluation note No assessment information availa ble [facility] Work Phone: Evaluation note Note Date & Type Note Facility Evaluation note Diagnosis Onset Date Tachycardia acute Hypertension chronic Psoriatic arthritis [facility] Work Phone: Evaluation note Note Date & Type Note Facility Evaluation note Diagnosis Onset Date Tachycardia acute Hypertension chronic Psoriatic arthritis chronic Palpitations acute Tachycardia acute Hypertension [facility] Work Phone: Hospital Discharge instructions Note [...] section and content) DATE CREATED AUTHOR 07/26/2021 [facility] DATE CREATED AUTHOR AUTHOR'S ORGANIZ ATION 01/12/2025 [facility] Care Teams (unrecognized sec tion and content) Team Status: Active Member Role Status Dates Dr. Osito Arroyo MD Family Provider Active Adina Guzmán DO [...] Dr. Kyle Cordova MD Attending Provider Active Mold Cleaner Relationship Specialty Start Date End Date ArielleAdina KayceeDO [address] [address] PCP - General Family Medicine 10/28/22 Team [...] End: November 08, 2024 Osito Mohamud NP, INDUSTRIAL ACCOUNTANT-C Attending Provider Active S tart: November 08, [...] or prosecute any alcohol or drug abuse patient.[facility] Reason for Visit (unrecogniz ed section [...] BE BASED ON THE PRIMARY CLINICAL RECORDS. [facility]. provides no warranty or guarantee of the accuracy or completeness of information in this document.
--- NOTE | 2025-01-24 09:36 | STRESSREP ---
Stress Test Report Date: 01/24/2025 Procedure: Exercise tolerance test/imaging study Indications: Dyspnea Consent: Per the patient Procedure: The patient exercised on a Marco Antonio protocol for 3 minutes and 30 seconds achieving a peak heart rate of 166 bpm (106% predicted maximal heart rate) with a peak blood pressure 172/80 mmHg and a peak MET capacity of 4.6 METs. The baseline ECG demonstrated sinus rhythm. The peak exercise ECG showed sinus tachycardia with no ischemic changes. There were no cardiac dysrhythmias pretest, during exercise, or recovery. The functional capacity was considered suboptimal. There was complaint of mild chest tightness at peak exercise. The examination was discontinued secondary to target heart rate being achieved and dyspnea. The patient was injected with 13.9 mCi of technetium 99m Cardiolite and subsequently rest SPECT Cardiolite nuclear imaging was obtained in the horizontal long, vertical long, and short axis views. Post-exercise, the patient was injected with 42.6 mCi of technetium 99m Cardiolite and subsequently stress SPECT Cardiolite nuclear imaging was obtained in the horizontal long, vertical long, and short axis views. A gated Cardiolite study at peak stress was obtained. Rest and stress SPECT Cardiolite nuclear imaging status post realignment, normalization, and attenuation correction, demonstrates the appearance of relative uniform tracer uptake and myocardial perfusion appearing within normal limits. There is end systolic thickening and brightening. The gated Cardiolite study demonstrates myocardial thickening and inward wall motion. The reported LVEF is 85%. Impression: 1. Technically adequate (percent predicted maximal heart rate greater than 85%) exercise tolerance test 2. Peak exercise ECG with no ischemic changes. Complaints of mild chest tightness with peak exercise. 3. There were no cardiac dysrhythmias pretest, during exercise, or recovery 4. Rest and stress SPECT Cardiolite nuclear imaging demonstrate relative uniform tracer uptake and myocardial perfusion appearing within normal limits. 5. The gated Cardiolite study reports an LVEF of 85%. This note was generated with Everestation software. It may contain incorrect words, spelling, and punctuation that were not noted in checking the note before signing.
== END | disposition home or self-care (01) ==
PROVIDERS: Referring Provider Nurse Practitioner Family; Visit Provider Nurse Practitioner Family
DX: R06.09 Other forms of dyspnea (principal); R00.2 Palpitations; R00.0 Tachycardia, unspecified; I10 Essential (primary) hypertension
CPT/HCPCS: 78452; 93017; A9500; A4216